=== PATIENT | female | born 1990 | race Caucasian/White ===

== ENCOUNTER 2016-09-14 14:58 | Emergency (ER) | payer SELFPAY ==
[~2016-09-14] VITALS: Ht 180.3 cm; Wt 149.7 kg
[~2016-09-14 14:58] MED LIST: FAMO-63 PO; FLUT9.9S NS; PHEN-318 PO; PRED20TA PO; PRED50TA PO; PROAIR RESPICL90 MCG IH; SULF1TAB24 PO
[2016-09-14 15:53] VITALS: BP 160/79
[2016-09-14 15:58] LABS: NEG OBC UR NEG; POS OBC UR POS
[2016-09-14 16:00] LABS: BILIRUBIN,URINE NEGATIVE (NEG); GLUCOSE,URINE NEGATIVE (NEG); NITRITE,URINE NEGATIVE (NEG); PH,URINE 5.5; PROTEIN,URINE NEGATIVE (NEG-TRACE); UROBILINOGEN,URINE 0.2 mg/dL (0.2 mg/dL)
[2016-09-14 16:09] LABS: BACTERIA,URINE MANY /HPF (0-FEW); RBC,URINE 0 /HPF (0-2); SQUAMOUS EPITHELIAL CELL,UR MANY /LPF
[2016-09-14] MEDS ORDERED: LEVO500T38 PO (16:23)
--- NOTE | 2016-09-14 16:23 | PHYS DOC ---
Past Medical History Past Medical History: GERD, GI Bleed, High Cholesterol, Hypertension, Other Additional Past Medical Histor: insulin resistance Past Surgical History: Cholecystectomy Alcohol Use: Occasionally Drug Use: None Adult General Chief Complaint Chief Complaint: BACK PAIN - NO INJURY [facility] HPI Patient is a 26 year old female presents emergency department stating that she has been having urinary frequency with right flank pain and discomfort for the last 3-4 days.. Patient also states that she had a yeast infection approximately a week ago in which she had used [id number] medications. She denies any vaginal discharge. She denies any fever, chills. She does state she's had some nausea although she has a history of ulcers. Patient denies any abdominal pain or discomfort. Denies any recent use of antibiotics. Review of Systems Review of Systems Constitutional: Denies fever or chills [] Eyes: Denies change in visual acuity, redness, or eye pain [] HENT: Denies nasal congestion or sore throat [] Respiratory: Denies cough or shortness of breath [] Cardiovascular: No additional information not addressed in HPI [] GI: Denies abdominal pain, vomiting, bloody stools or diarrhea. C/o nausea : dysuria denies hematuria [] Musculoskeletal: Denies back pain or joint pain [] Integument: Denies rash or skin lesions [] Neurologic: Denies headache, focal weakness or sensory changes [] Allergies Allergies Allergies Coded Allergies Type Severity Reaction Last Updated Verified lisinopril Allergy Intermediate Itching 04/19/16 No Physical Exam Physical Exam Constitutional: Well developed, well nourished, no acute distress, non-toxic appearance. [] HENT: Normocephalic, atraumatic, bilateral external ears normal, oropharynx moist, no oral exudates, nose normal. Maxillary sinus tenderness noted bilaterally Eyes: PERRLA, EOMI, conjunctiva normal, no discharge. [] Neck: Normal range of motion, no tenderness, supple, no stridor. [] Cardiovascular:Heart rate regular rhythm, no murmur [] Lungs & Thorax: Bilateral breath sounds clear to auscultation [] Abdomen: Bowel sounds hypoactive, soft, no tenderness, no masses, no pulsatile masses. [] Skin: Warm, dry, no erythema, no rash. [] Back: No tenderness, right CVA tenderness. [] Extremities: No tenderness, no cyanosis, no clubbing, ROM intact, no edema. [] Neurologic: Alert and oriented X 3, normal motor function, normal sensory function, no focal deficits noted. [] Psychologic: Affect normal, judgement normal, mood normal. [] Current Patient Data Vital Signs Vital Signs Date Time Temp Pulse Resp B/P Pulse Ox O2 Delivery O2 Flow Rate FiO2 09/14/16 15:53 98.4 96 18 160/79 100 Room Air 98.4 Lab Values Laboratory Tests Test 09/14/16 15:48 Urine Collection Type Unknown Urine Color Yellow Urine Clarity Clear Urine pH 5.5 Urine Specific Micro <=1.005 Urine Protein Negativemg/dL (NEG-TRACE) Urine Glucose (UA) Negativemg/dL (NEG) Urine Ketones (Stick) Negativemg/dL (NEG) Urine Blood Negative (NEG) Urine Nitrite Negative (NEG) Urine Bilirubin Negative (NEG) Urine Urobilinogen Dipstick 0.2mg/dL (0.2 mg/dL) Urine Leukocyte Esterase Small (NEG) Urine RBC 0/HPF (0-2) Urine WBC 1-4/HPF (0-4) Urine Squamous Epithelial Cells Many/LPF Urine Bacteria Many/HPF (0-FEW) Urine Mucus Mod/LPF Urine Test Negative (NEG) EKG EKG [] Radiology/Procedures Radiology/Procedures [] Course & Med Decision Making Course & Med Decision Making Pertinent Labs and Imaging studies reviewed. (See chart for details) Patients urine was positive for leuk with contamination noted. Patient continues to deny vaginal discharge. She does c/o gum discomfort with bleeding when brushing her teeth. Patient will be discharged home in stable conditions. Recommended avoiding cranberry juice cocktail, carbonated beverages, citrus fruits and alcohol as these are considered irritants to the bladder. Patient was provided with discharge instructions, treatment regimen and followup recommendations. Signs and symptoms to return to the emergency department has been provided. Patient will be discharged home in stable condition. [] Dragon Disclaimer Dragon Disclaimer This electronic medical record was generated, in whole or in part, using a voice recognition dictation system. Departure Departure Impression: Primary Impression: UTI (urinary tract infection) Disposition: 01 HOME, SELF-CARE Condition: STABLE Referrals: NO PCP (PCP) Patient Instructions: Urinary Tract Infection, [id number] Additional Instructions: Activity as tolerated Medication as prescribed Drink plenty of fluids Drink plenty of water and cranberry juice Avoid cranberry juice cocktail, carbonated beverages, caffeine and alcohol as these are considered irritants to the bladder Followup with your primary care provider in 7-10 days Return to emergency department as needed for signs and symptoms that become worse. Scripts Levofloxacin (Levaquin)500 Mg Tablet1 Tab PO DAILY #10 TAB Prov:AXEL CASON NP 09/14/16 AXEL CASON NP Sep 14, 2016 16:23
== END 2016-09-14 17:00 | disposition home or self-care (01) ==
LOC: ER 14:58
DX: N39.0 Urinary tract infection, site not specified (principal); I10 Essential (primary) hypertension; E78.00 Pure hypercholesterolemia, unspecified; E88.81 Metabolic syndrome and other insulin resistance; K21.9 Gastro-esophageal reflux disease without esophagitis; Z88.8 Allergy status to other drugs, medicaments and biological substances
CPT/HCPCS: 81001; 81025; 87086; 99284

== ENCOUNTER 2016-10-24 06:03 | Emergency (ER) | payer OTHER ==
[~2016-10-24] VITALS: Ht 172.7 cm; Wt 149.7 kg
[~2016-10-24 06:03] MED LIST changes: +LEVO500T38 PO
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
[2016-10-24] MEDS ORDERED: ACETAMINOPHEN 500 MG TABLET PO ONE (06:45)
[2016-10-24 06:46] VITALS: BP 144/82
[2016-10-24] MEDS ORDERED: DIPHTH,PERTUSS(ACELL),TET TOX 0.5 ML DISP.SYRIN. VAX IM ONE (07:15)
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
[2016-10-24] MEDS ORDERED: HYDR-971 PO (07:59)
== END 2016-10-24 08:08 | disposition home or self-care (01) ==
LOC: EEVIPCON 06:03 → ER 06:03
DX: R51 Headache (principal); M25.561 Pain in right knee; M25.531 Pain in right wrist; M79.632 Pain in left forearm; M54.2 Cervicalgia; E78.00 Pure hypercholesterolemia, unspecified; I10 Essential (primary) hypertension; K21.9 Gastro-esophageal reflux disease without esophagitis; Z90.49 Acquired absence of other specified parts of digestive tract; Z88.8 Allergy status to other drugs, medicaments and biological substances; Y04.0XXA Assault by unarmed brawl or fight, initial encounter; Y93.89 Activity, other specified; Y99.8 Other external cause status; Y92.89 Other specified places as the place of occurrence of the external cause
CPT/HCPCS: 70450; 70486; 72125; 73090; 73110; 73564; 81025; 90471; 90715; 99284-25

== ENCOUNTER 2016-11-07 13:52 | Emergency (ER) | payer OTHER ==
[~2016-11-07] VITALS: Ht 180.3 cm; Wt 145.1 kg
[~2016-11-07 13:52] MED LIST changes: +HYDR-971 PO
[2016-11-07 14:20] VITALS: BP 139/92
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
== END 2016-11-07 15:16 | disposition home or self-care (01) ==
LOC: ER 13:55
DX: S93.401A Sprain of unspecified ligament of right ankle, initial encounter (principal); M72.2 Plantar fascial fibromatosis; I10 Essential (primary) hypertension; K21.9 Gastro-esophageal reflux disease without esophagitis; E78.00 Pure hypercholesterolemia, unspecified; F12.10 Cannabis abuse, uncomplicated; Z79.4 Long term (current) use of insulin; Y08.89XA Assault by other specified means, initial encounter; Y93.89 Activity, other specified; Y99.8 Other external cause status; Y92.89 Other specified places as the place of occurrence of the external cause
CPT/HCPCS: 29515; 73610; 99284-25

== ENCOUNTER 2017-02-11 21:59 | Emergency (ER) | payer OTHER ==
[~2017-02-11] VITALS: Ht 180.3 cm; Wt 140.6 kg
[~2017-02-11 21:59] MED LIST changes: -LEVO500T38 PO; +LEVO500T59 PO
[2017-02-11 22:30] VITALS: BP 153/85
[2017-02-11] MEDS ORDERED: IBUPROFEN 600 MG TABLET. PO ONE (23:30)
[2017-02-11] MEDS ORDERED: HYDROcodone/APAP 5/325MG 1 TAB TABLET PO ONE (23:30)
[2017-02-11] MEDS ORDERED: CYCLOBENZAPRINE 10 MG TABLET. PO ONE (23:30)
[2017-02-11] MEDS ORDERED: CYCL5TAB PO (23:37)
[2017-02-11] MEDS ORDERED: HYDR-971 PO (23:37)
--- NOTE | 2017-02-11 23:38 | PHYS DOC ---
Past Medical History Past Medical History: GERD, GI Bleed, High Cholesterol, Hypertension, Other Additional Past Medical Histor: insulin resistance Past Surgical History: Cholecystectomy Alcohol Use: Occasionally Drug Use: Marijuana Adult General Chief Complaint Chief Complaint: LOWER BACK PAIN OR INJURY HPI HPI Patient is a 26 year old female who presents with back pain. The patient states 2 days ago she bent over to pick something up, felt a shooting pain in her back and has had severe muscle spasm and pain across her lower back since that time. Denies any trauma or fall. Worse with movement. Denies fevers or chills, abdominal pain, dysuria or hematuria, bowel or bladder incontinence or retention, saddle anesthesia, lower extremity numbness or weakness. Reports previous back injury several years ago. No back surgeries. Review of Systems Review of Systems Constitutional: Denies fever or chills HENT: Denies nasal congestion or sore throat Respiratory: Denies cough or shortness of breath Cardiovascular: Denies chest pain GI: Denies abdominal pain, nausea, vomiting : Denies dysuria or hematuria Musculoskeletal: Reports back pain, denies joint pain Integument: Denies rash or skin lesions Neurologic: Denies headache, focal weakness or sensory changes Current Medications Current Medications Current Medications Medications (Trade) Dose Ordered Sig/Tiffanie Start Time Stop Time Status Last Admin Dose Admin Acetaminophen/ Hydrocodone Bitart (Lortab 5/325) 2 tab 1X ONCE 02/11/17 23:30 02/11/17 23:31 DC 02/11/17 23:39 2 TAB Cyclobenzaprine HCl (Flexeril) 10 mg 1X ONCE 02/11/17 23:30 02/11/17 23:31 DC 02/11/17 23:39 10 MG Ibuprofen (Motrin) 600 mg 1X ONCE 02/11/17 23:30 02/11/17 23:31 DC 02/11/17 23:39 600 MG Allergies Allergies Allergies Coded Allergies Type Severity Reaction Last Updated Verified lisinopril Allergy Intermediate Itching 04/19/16 No Physical Exam Physical Exam Constitutional: Obese, tearful, non-toxic appearance. HENT: Normocephalic, atraumatic, bilateral external ears normal, oropharynx moist, nose normal. Eyes: \conjunctiva normal, no discharge. Neck: supple, no stridor. Cardiovascular: RRR, no murmurs, no edema. Lungs & Thorax: LCTAB, no wheezing, no respiratory distress. Abdomen: soft, nontender, nondistended. Skin: Warm, dry, no erythema, no rash. Back: No spinal tenderness or step-offs, generalized tenderness over lumbar paraspinous muscles, no CVA tenderness. Extremities: No tenderness, no edema. Neurologic: Alert and oriented X 3, symmetric strength and sensation to lower extremities no focal deficits noted. Psychologic: Tearful Current Patient Data Vital Signs Vital Signs Date Time Temp Pulse Resp B/P (MAP) Pulse Ox O2 Delivery O2 Flow Rate FiO2 02/11/17 23:39 99 Room Air 02/11/17 22:30 98.1 76 20 98.1 EKG EKG [] Radiology/Procedures Radiology/Procedures [] Course & Med Decision Making Course & Med Decision Making Pertinent Labs and Imaging studies reviewed. (See chart for details) The patient presents with back pain. Discussed imaging with x-ray, likely low yield with mechanism of injury. She preferred not to undergo imaging at this time. She had a ride home. Gave ibuprofen, [place], Flexeril. Recommend supportive care with rest but not complete bed rest, stretching as tolerated, ice or heat, ibuprofen 600 mg every 8 hours, gave prescriptions for [place] and Flexeril. No drinking alcohol or driving while taking these medications. Provided work no. Follow-up with primary care physician if not improving in one to 2 weeks. May require MRI at that time. Return to the emergency department for symptoms of cauda equina syndrome or otherwise worsening condition. Discharged home in stable condition. [] Dragon Disclaimer Dragon Disclaimer This electronic medical record was generated, in whole or in part, using a voice recognition dictation system. Departure Departure Impression: Primary Impression: Lower back pain Disposition: 01 HOME, SELF-CARE Condition: STABLE Referrals: NO PCP (PCP) MARLEE TRUJILLO MD Patient Instructions: Back Pain, Adult, [id number] Additional Instructions: You were seen in the emergency department today for back pain. This is likely muscle strain. Please rest, apply ice/heat, take ibuprofen 600 mg (3 tablets) every 8 hours, use Flexeril as needed for muscle spasm and [place] for severe pain. No drinking alcohol or driving while taking these medications. Try not to just rest on the bed. Follow up with primary care physician if not improving in one to 2 weeks. Return to the emergency department for loss of control of bowels or bladder, numbness or weakness in legs, severe abdominal pain, any otherwise worsening condition. Scripts Hydrocodone/Apap 5-325 (NORCO 5-325 TABLET) 1 Each Tablet 1 TAB PO PRN Q6HRS Y for PAIN, #10 TAB 0 Refills Prov: TIFF RUGGIERO MD 02/11/17 Cyclobenzaprine Hcl (CYCLOBENZAPRINE HCL) 5 Mg Tablet 1 TAB PO TID Y for MUSCLE SPASMS, #10 TAB Prov: TIFF RUGGIERO MD 02/11/17 TIFF RUGGIERO MD Feb 11, 2017 23:38
== END 2017-02-11 23:51 | disposition home or self-care (01) ==
LOC: ER 21:59
DX: M54.5 Low back pain (principal); E78.00 Pure hypercholesterolemia, unspecified; K21.9 Gastro-esophageal reflux disease without esophagitis; I10 Essential (primary) hypertension; E66.9 Obesity, unspecified; F12.10 Cannabis abuse, uncomplicated; E88.81 Metabolic syndrome and other insulin resistance; Z90.49 Acquired absence of other specified parts of digestive tract; Z68.41 Body mass index [BMI] 40.0-44.9, adult; Z88.8 Allergy status to other drugs, medicaments and biological substances
CPT/HCPCS: 99284

== ENCOUNTER 2017-04-02 18:44 | Emergency (ER) | payer OTHER ==
[~2017-04-02] VITALS: Ht 180.3 cm; Wt 149.7 kg
[~2017-04-02 18:44] MED LIST changes: +CYCL5TAB PO
[2017-04-02 19:20] VITALS: BP 147/96
[2017-04-02] MEDS ORDERED: FLUC150T PO (19:30)
[2017-04-02] MEDS ORDERED: AMOX1TAB61 PO (19:30)
--- NOTE | 2017-04-02 19:31 | PHYS DOC ---
Past Medical History Past Medical History: GERD, GI Bleed, High Cholesterol, Hypertension, Other Additional Past Medical Histor: insulin resistance Past Surgical History: Cholecystectomy Alcohol Use: Occasionally Drug Use: Marijuana Adult General Chief Complaint Chief Complaint: EARACHE/EAR PAIN [facility] HPI Patient is a 26 year old female presents emergency department stating that she' s had 2-3 day history of sinus pressure with bilateral ear itching and sharp pain in the right ear. She also states that she's been having the throat that feels very itchy. Patient denies any fever, chills or any nausea vomiting. Patient states that she's taken Tylenol and ibuprofen over the counter with minimal relief. She states that she's been taking Benadryl to also help with seasonal allergies. Review of Systems Review of Systems Constitutional: Denies fever or chills [] Eyes: Denies change in visual acuity, redness, or eye pain [] HENT: Denies nasal congestion or sore throat. Complaint of bilateral itching of the ears as well as throat. Complaint of frontal and maxillary sinus pressure Respiratory: Denies cough or shortness of breath [] Cardiovascular: No additional information not addressed in HPI [] GI: Denies abdominal pain, nausea, vomiting, bloody stools or diarrhea [] : Denies dysuria or hematuria [] Musculoskeletal: Denies back pain or joint pain [] Integument: Denies rash or skin lesions [] Neurologic: Denies headache, focal weakness or sensory changes [] Endocrine: Denies polyuria or polydipsia [] Allergies Allergies Allergies Coded Allergies Type Severity Reaction Last Updated Verified lisinopril Allergy Intermediate Itching 04/19/16 No Physical Exam Physical Exam Constitutional: Well developed, well nourished, no acute distress, non-toxic appearance. [] HENT: Normocephalic, atraumatic, bilateral external ears normal, oropharynx moist, no oral exudates, nose normal. Left tympanic membrane appears to be normal right tympanic membrane appears to be cloudy. No drainage or discharge noted from the area. Throat appears to have postnasal drip. No redness no exudate noted. Patient was noted to have frontal and maxillary sinus tenderness bilaterally. Eyes: PERRLA, EOMI, conjunctiva normal, no discharge. [] Neck: Normal range of motion, no tenderness, supple, no stridor. [] Cardiovascular:Heart rate regular rhythm, no murmur [] Lungs & Thorax: Bilateral breath sounds clear to auscultation [] Skin: Warm, dry, no erythema, no rash. [] Back: No tenderness Extremities: No tenderness, no cyanosis, no clubbing, ROM intact, no edema. [] Neurologic: Alert and oriented X 3, normal motor function, normal sensory function, no focal deficits noted. [] Psychologic: Affect normal, judgement normal, mood normal. [] EKG EKG [] Radiology/Procedures Radiology/Procedures [] Course & Med Decision Making Course & Med Decision Making Pertinent Labs and Imaging studies reviewed. (See chart for details) Patient was recommended Sudafed [id number] as well as Mucinex DM as prescribed by senior accountant analyst. Patient was encouraged drink plenty of fluids. She' ll be provided with a prescription for Augmentin. Also recommended Diflucan due to her history of having yeast infections with medications. Patient will be discharged home in stable condition signs and symptoms to return back to emergency department as been provided. [] Dragon Disclaimer Dragon Disclaimer This electronic medical record was generated, in whole or in part, using a voice recognition dictation system. Departure Departure Impression: Primary Impression: Sinusitis Disposition: HOME, SELF-CARE Condition: STABLE Referrals: NO PCP (PCP) Patient Instructions: Sinusitis, [id number] Additional Instructions: Activity as tolerated. Mucinex DM and Sudafed instructed by senior accountant analyst. Tylenol or ibuprofen for fever chills or generalized body aches and discomfort. Antibiotics as prescribed. Make sure you complete the full regimen even if he should start feeling better. Drink plenty of fluids. Follow-up with a primary care physician in the next week. Return back to emergency department sign symptoms of become worse. Scripts Fluconazole (DIFLUCAN) 150 Mg Tablet 1 TAB PO ONCE, #1 TAB 1 Refill Take one dose with and symptoms appear. He may repeat the dosage when she antibiotics have been completed. Prov: AXEL CASON APRN 04/02/17 Amoxicillin/Potassium Clav (AUGMENTIN 875-125 TABLET) 1 Each Tablet 1 TAB PO BID, #20 TAB Prov: AXEL CASON APRN 04/02/17 AXEL CASON APRN Apr 02, 2017 19:31
== END 2017-04-02 19:35 | disposition home or self-care (01) ==
LOC: ER 18:44
DX: J32.9 Chronic sinusitis, unspecified (principal); I10 Essential (primary) hypertension; E78.00 Pure hypercholesterolemia, unspecified; K21.9 Gastro-esophageal reflux disease without esophagitis; F12.10 Cannabis abuse, uncomplicated; Z90.49 Acquired absence of other specified parts of digestive tract; Z88.8 Allergy status to other drugs, medicaments and biological substances
CPT/HCPCS: 99283

== ENCOUNTER 2017-05-09 18:24 | Emergency (ER) | payer SELFPAY ==
[~2017-05-09] VITALS: Ht 180.3 cm; Wt 149.7 kg
[~2017-05-09 18:24] MED LIST changes: +AMOX1TAB61 PO; +FLUC150T PO
[2017-05-09 18:34] VITALS: BP 166/79
--- NOTE | 2017-05-09 19:29 | PHYS DOC ---
Past Medical History Past Medical History: GERD, GI Bleed, High Cholesterol, Hypertension, Other Additional Past Medical Histor: insulin resistance Past Surgical History: Cholecystectomy Alcohol Use: Occasionally Drug Use: Marijuana Adult General Chief Complaint Chief Complaint: LOWER EXT PAIN [facility] HPI Patient is a 27 year old female with history of hypertension, high cholesterol , GI bleed, who presents today with swollen area on the right thigh. Patient has history of varicose veins. She feels one of them is swollen and tender since yesterday. Patient is concerned she could have a DVT. Denies any chest pain or shortness of breath. Denies any risk factors for DVTs including previous history of a DVT, use of hormones, recent hospitalization, recent long flights or car rides, shortness of breath. Review of Systems Review of Systems Constitutional: Denies fever or chills [] Eyes: Denies change in visual acuity, redness, or eye pain [] HENT: Denies nasal congestion or sore throat [] Respiratory: Denies cough or shortness of breath [] Cardiovascular: No additional information not addressed in HPI [] GI: Denies abdominal pain, nausea, vomiting, bloody stools or diarrhea [] : Denies dysuria or hematuria [] Musculoskeletal: Denies back pain or joint pain [] Integument: Swollen area on the right thigh Neurologic: Denies headache, focal weakness or sensory changes [] Allergies Allergies Allergies Coded Allergies Type Severity Reaction Last Updated Verified lisinopril Allergy Intermediate Itching 04/19/16 No Physical Exam Physical Exam Constitutional: Well developed, well nourished, no acute distress, non-toxic appearance. [] HENT: Normocephalic, atraumatic, bilateral external ears normal, oropharynx moist, no oral exudates, nose normal. [] Eyes: PERRLA, EOMI, conjunctiva normal, no discharge. [] Neck: Normal range of motion, no tenderness, supple, no stridor. [] Cardiovascular:Heart rate regular rhythm, no murmur [] Lungs & Thorax: Bilateral breath sounds clear to auscultation [] Abdomen: Bowel sounds normal, soft, no tenderness, no masses, no pulsatile masses. [] Skin: Moderate vericose veins noted on bilateral lower extremities. Area of concern is right medial thigh with a varicose vein with palpable mass approx approx. 4 cm long. No erythema, no warmth, slight tenderness on physical exam. Negative right lower extremity Homans sign. +2 Right pedal pulse Back: No tenderness, no CVA tenderness. [] Extremities: No tenderness, no cyanosis, no clubbing, ROM intact, no edema. [] Neurologic: Alert and oriented X 3, normal motor function, normal sensory function, no focal deficits noted. [] Psychologic: Affect normal, judgement normal, mood normal. [] Current Patient Data Vital Signs Vital Signs Date Time Temp Pulse Resp B/P (MAP) Pulse Ox O2 Delivery O2 Flow Rate FiO2 05/09/17 18:34 98.2 103 20 100 Room Air 98.2 EKG EKG [] Radiology/Procedures Radiology/Procedures [] Course & Med Decision Making Course & Med Decision Making Pertinent Labs and Imaging studies reviewed. (See chart for details) Patient is in the ED to be evaluated for right lower extremity specifically the right posterior thigh swollen area around her varicose vein. She has history of varicose veins. She is worried about a DVT. Venous Doppler of the right lower extremity shows no evidence of DVT. There is a short segment superficial venous thrombosis of the medial mid thigh. Consulted with Dr. Vazquez, he requested patient to be discharged on NSAIDS and be requested to return to follow-up with the primary care doctor in 7 days for another ultrasound to make sure this superficial venous thrombosis does not grow bigger or return to the Ed for the ultrasound. Patient states she does not have a PCP. She was instructed to return to the ED in 7 days and have another ultrasound. Dragon Disclaimer Dragon Disclaimer This electronic medical record was generated, in whole or in part, using a voice recognition dictation system. Departure Departure Impression: Primary Impression: Acute superficial venous thrombosis of right lower extremity Additional Impression: Varicose veins of both lower extremities Disposition: HOME, SELF-CARE Condition: STABLE Referrals: NO PCP (PCP) see discharge note for follow up information Patient Instructions: Varicose Veins, Venous Thromboembolism Additional Instructions: You had an ultrasound performed today which shows you have a short segment superficial venous thrombosis of the medial mid thigh We recommend you take NSAIDs for the next 7 days and we also recommend you follow-up with your doctor in 7 days and have a repeat ultrasound to make sure this superficial thrombus does not grow bigger. If you do not have a primary care doctor, you can return to the emergency room in 7 days for the ultrasound. Ensure you the person at the front of the Ed who checks people in know you are here to be seen for a repeat ultrasound to make sure your venous thrombosis does not grow bigger. Problem Qualifiers BREANNA CROFT APRN May 09, 2017 19:29
--- NOTE | 2017-05-09 20:18 | RAD ---
Right lower extremity venous Doppler dated 05/09/2017. No comparison available. Clinical indication: Mid thigh swelling. FINDINGS: Grayscale, color-flow and spectral waveform analysis performed to include the deep venous system of right lower extremity. Normal compressibility, phasicity and augmentation of flow throughout. No filling defects are seen. There are prominent superficial venous varicosities of the mid thigh region medially that are partially thrombosed,, measuring about 5 to 6 cm in length. IMPRESSION: 1. No evidence of right lower extremity deep vein thrombosis. 2. Short segment superficial venous thrombosis at the medial mid thigh. Electronically signed by: Guillermo Luu MD (05/09/2017 8:15 PM) [facility]
== END 2017-05-09 21:14 | disposition home or self-care (01) ==
LOC: ER 18:24
DX: I82.4Z1 Acute embolism and thrombosis of unspecified deep veins of right distal lower extremity (principal); I83.93 Asymptomatic varicose veins of bilateral lower extremities; K21.9 Gastro-esophageal reflux disease without esophagitis; E78.00 Pure hypercholesterolemia, unspecified; I10 Essential (primary) hypertension; Z88.8 Allergy status to other drugs, medicaments and biological substances
CPT/HCPCS: 93971; 99284-25

== ENCOUNTER 2017-05-17 18:41 | Emergency (ER) | payer SELFPAY ==
[2017-05-17 19:30] VITALS: BP 142/86
--- NOTE | 2017-05-17 19:57 | PHYS DOC ---
Past Medical History Past Medical History: GERD, GI Bleed, High Cholesterol, Hypertension, Other Additional Past Medical Histor: insulin resistance Past Surgical History: Cholecystectomy Alcohol Use: Occasionally Drug Use: Marijuana Adult General Chief Complaint Chief Complaint: LOWER EXT PAIN HPI HPI Patient is a 27 year old female presents to the emergency department with quest for follow-up ultrasound to the right lower extremity. Patient was evaluated one week ago in the emergency department and diagnosed with superficial thrombophlebitis. She was advised to return to the emergency department in one week for reevaluation. She is discharged home on Naprosyn that time purchased no complaints upon arrival. She has no chest pain, no abdominal pain, shortness of breath. Review of Systems Review of Systems Constitutional: Denies fever or chills [] Eyes: Denies change in visual acuity, redness, or eye pain [] HENT: Denies nasal congestion or sore throat [] Respiratory: Denies cough or shortness of breath [] Cardiovascular: No additional information not addressed in HPI [] GI: Denies abdominal pain, nausea, vomiting, bloody stools or diarrhea [] : Denies dysuria or hematuria [] Musculoskeletal: Right medial thigh discomfort Integument: Denies rash or skin lesions [] Neurologic: Denies headache, focal weakness or sensory changes [] Endocrine: Denies polyuria or polydipsia [] Allergies Allergies Allergies Coded Allergies Type Severity Reaction Last Updated Verified lisinopril Allergy Intermediate Itching 04/19/16 No Physical Exam Physical Exam Constitutional: Well developed, well nourished, no acute distress, non-toxic appearance. [] HENT: Normocephalic, atraumatic, bilateral external ears normal, oropharynx moist, no oral exudates, nose normal. [] Eyes: PERRLA, EOMI, conjunctiva normal, no discharge. [] Neck: Normal range of motion, no tenderness, supple, no stridor. [] Cardiovascular:Heart rate regular rhythm, no murmur [] Lungs & Thorax: Bilateral breath sounds clear to auscultation [] Abdomen: Bowel sounds normal, soft, no tenderness, no masses, no pulsatile masses. [] Skin: Warm, dry, medial thigh with a 2 cm area of erythema with underlying varicosities. Back: No tenderness, no CVA tenderness. [] Extremities: No tenderness, no cyanosis, no clubbing, ROM intact, no edema. Norvasc intact distally. [] Neurologic: Alert and oriented X 3, normal motor function, normal sensory function, no focal deficits noted. [] Psychologic: Affect normal, judgement normal, mood normal. [] Current Patient Data Vital Signs Vital Signs Date Time Temp Pulse Resp B/P (MAP) Pulse Ox O2 Delivery O2 Flow Rate FiO2 05/17/17 19:30 98.1 92 18 98 Room Air 98.1 EKG EKG [] Radiology/Procedures Radiology/Procedures [][facility] [address] [place] [address] IMAGING REPORT Signed PATIENT: SANDOR HO ACCOUNT: [id number] : 1990 LOCATION: ER AGE: 27 SEX: F EXAM STATUS: REG ER ORD. PHYSICIAN: VIDYA GRAYSON APRN REASON: follow up US 7 days PROCEDURE: VENOUS LOWER EXTREMITY RIGHT Right lower extremity venous duplex Doppler ultrasound TECHNIQUE: Grayscale and duplex Doppler sonography were utilized. HISTORY: Thrombosed superficial varicose vein right leg, right leg pain increasing COMPARISON: Right lower extremity venous Doppler ultrasound May 09, 2017 FINDINGS: No evidence of deep venous thrombosis by grayscale imaging with compressibility, patent color Doppler blood flow and augmentation of blood flow the right common femoral vein, profunda femoral vein, located superficial femoral vein and popliteal vein. Patent color Doppler blood flow with augmentation of flow without thrombosis of the posterior tibial veins and peroneal veins in the calf. At the mid to distal thigh again demonstrated is a tubular thrombosed superficial varicose vein similar to the prior study. There is patent blood flow within the greater saphenous vein within the proximal thigh without thrombosis. IMPRESSION: Negative right leg for deep venous thrombosis. Thrombosed superficial venous varicosity of the mid to distal right thigh is again demonstrated. Electronically signed by: Mehreen Garrison MD (05/17/2017 8:36 PM) [facility] DICTATED and SIGNED BY: MEHREEN GARRISON MD DATE: 05/17/172033 CC: NO PCP; VIDYA GRAYSON APRN ~ Course & Med Decision Making Course & Med Decision Making Pertinent Labs and Imaging studies reviewed. (See chart for details) [] Dragon Disclaimer Dragon Disclaimer This electronic medical record was generated, in whole or in part, using a voice recognition dictation system. Departure Departure Impression: Primary Impression: Acute superficial venous thrombosis of right lower extremity Disposition: HOME, SELF-CARE Condition: STABLE Referrals: NO PCP (PCP) Patient Instructions: Varicose Veins Additional Instructions: Follow-up with the pain clinic of your choice. Warm moist heat to affected area. Continue ibuprofen when necessary for pain. VIDYA GRAYSON ENDODONTIC ASSISTANT May 17, 2017 19:57
--- NOTE | 2017-05-17 20:40 | RAD ---
Right lower extremity venous duplex Doppler ultrasound TECHNIQUE: Grayscale and duplex Doppler sonography were utilized. HISTORY: Thrombosed superficial varicose vein right leg, right leg pain increasing COMPARISON: Right lower extremity venous Doppler ultrasound May 09, 2017 FINDINGS: No evidence of deep venous thrombosis by grayscale imaging with compressibility, patent color Doppler blood flow and augmentation of blood flow the right common femoral vein, profunda femoral vein, located superficial femoral vein and popliteal vein. Patent color Doppler blood flow with augmentation of flow without thrombosis of the posterior tibial veins and peroneal veins in the calf. At the mid to distal thigh again demonstrated is a tubular thrombosed superficial varicose vein similar to the prior study. There is patent blood flow within the greater saphenous vein within the proximal thigh without thrombosis. IMPRESSION: Negative right leg for deep venous thrombosis. Thrombosed superficial venous varicosity of the mid to distal right thigh is again demonstrated. Electronically signed by: Baljinder Garrison MD (05/17/2017 8:36 PM) [facility]
== END 2017-05-17 20:50 | disposition home or self-care (01) ==
LOC: ER 18:41
DX: I82.811 Embolism and thrombosis of superficial veins of right lower extremity (principal); K21.9 Gastro-esophageal reflux disease without esophagitis; E78.00 Pure hypercholesterolemia, unspecified; I10 Essential (primary) hypertension; F12.10 Cannabis abuse, uncomplicated; Z88.8 Allergy status to other drugs, medicaments and biological substances
CPT/HCPCS: 93971; 99284-25

== ENCOUNTER 2017-06-08 10:03 | Emergency (ER) | payer SELFPAY ==
[~2017-06-08] VITALS: Ht 180.3 cm; Wt 149.7 kg
[2017-06-08 10:32] VITALS: BP 180/105
[2017-06-08] MEDS ORDERED: methylPREDNISolone SOD SUCC PF 125 MG/2 ML VIAL. IM ONE (11:15)
[2017-06-08] MEDS ORDERED: ORPHENADRINE CITRATE 60 MG/2 ML VIAL. IM ONE (11:15)
[2017-06-08] MEDS ORDERED: KETOROLAC 60 MG/2 ML INJ. IM ONE (11:15)
--- NOTE | 2017-06-08 11:15 | PHYS DOC ---
Past Medical History Past Medical History: GERD, GI Bleed, High Cholesterol, Hypertension, Other Additional Past Medical Histor: insulin resistance, chronic pain Past Surgical History: Cholecystectomy Alcohol Use: Occasionally Drug Use: Marijuana Adult General Chief Complaint Chief Complaint: LOWER BACK PAIN OR INJURY [facility] HPI Patient is a 27 year old female presents to the emergency department with a history of right lower back pain with radiation of pain to the right upper thigh. Patient states the pain is so bad that she is unable to walk. She denies injury or trauma to the back. Patient states she has taken baclofen and meloxicam. She states she took a friends baclofen. She states these medication have not helped with her pain at all. She denies incont of urine or bowel. Review of Systems Review of Systems Constitutional: Denies fever or chills [] Eyes: Denies change in visual acuity, redness, or eye pain [] HENT: Denies nasal congestion or sore throat [] Respiratory: Denies cough or shortness of breath [] Cardiovascular: No additional information not addressed in HPI [] GI: Denies abdominal pain, nausea, vomiting, bloody stools or diarrhea [] : Denies dysuria or hematuria [] Musculoskeletal: C/o right lower back pain and discomfort, denies joint pain Integument: Denies rash or skin lesions [] Neurologic: Denies headache, focal weakness or sensory changes [] Endocrine: Denies polyuria or polydipsia [] Current Medications Current Medications Current Medications Medications (Trade) Dose Ordered Sig/Tiffanie Start Time Stop Time Status Last Admin Dose Admin Ketorolac Tromethamine (Toradol Im) 60 mg 1X ONCE 06/08/17 11:15 06/08/17 11:16 DC 06/08/17 11:29 60 MG Methylprednisolone Sodium Succinate (SOLU-Medrol 125MG VIAL) 125 mg 1X ONCE 06/08/17 11:15 06/08/17 11:16 DC 06/08/17 11:28 125 MG Orphenadrine Citrate (Norflex) 60 mg 1X ONCE 06/08/17 11:15 06/08/17 11:16 DC 06/08/17 11:29 60 MG Allergies Allergies Allergies Coded Allergies Type Severity Reaction Last Updated Verified lisinopril Allergy Intermediate Itching 04/19/16 No Physical Exam Physical Exam Constitutional: Well developed, well nourished, no acute distress, non-toxic appearance. [] HENT: Normocephalic, atraumatic, bilateral external ears normal, oropharynx moist, no oral exudates, nose normal. [] Eyes: PERRLA, EOMI, conjunctiva normal, no discharge. [] Neck: Normal range of motion, no tenderness, supple, no stridor. [] Cardiovascular:Heart rate regular rhythm, no murmur [] Lungs & Thorax: Bilateral breath sounds clear to auscultation [] Skin: Warm, dry, no erythema, no rash. [] Back: Right lower back tenderness, Patient was noted to have increase discomfort with straight leg raises, She had increase pain with internal rotation of the right leg. Extremities: No tenderness, no cyanosis, no clubbing, ROM intact, no edema. [] Neurologic: Alert and oriented X 3, normal motor function, normal sensory function, no focal deficits noted. [] Psychologic: Affect normal, judgement normal, mood normal. [] Current Patient Data Vital Signs Vital Signs Date Time Temp Pulse Resp B/P (MAP) Pulse Ox O2 Delivery O2 Flow Rate FiO2 06/08/17 10:32 98.0 99 22 98 Room Air 98.0 EKG EKG [] Radiology/Procedures Radiology/Procedures [] Course & Med Decision Making Course & Med Decision Making Pertinent Labs and Imaging studies reviewed. (See chart for details) Patient was provided with Solu-Medrol, Toradol, and Norflex approximately 30 minutes ago. Patient states she has had no relief of pain and continues to have discomfort. Patient is lying on her side and begins to start crying once the provider walked into the room. Patient continues to state that she is taken meloxicam at home as well as baclofen whose medication as a friend's. Patient states these medications have not helped with the pain and discomfort. Explained to patient that we will be sending her home with steroids she can continue with the meloxicam and we'll send prescription for Flexeril as well. Recommended ice packs on 20 minutes off 20 minutes several times a day. Provided patient with proper body positioning when lying down in which patient continued to interrupt provider during discharge instructions stating that she has tried everything and the pain is not any better and feels that she needs to have further pain medications. Patient was instructed that she would need to follow-up with her primary care physician in the next 7-10 days for reevaluation with her primary care for potential MRI if the pain continues. Patient will be discharged home in stable condition signs and symptoms to return back to emergency department been provided. All questions and concerns been answered at patient's bedside. [] Dragon Disclaimer Dragon Disclaimer This electronic medical record was generated, in whole or in part, using a voice recognition dictation system. Departure Departure Impression: Primary Impression: Back pain with sciatica Disposition: HOME, SELF-CARE Condition: STABLE Referrals: NO PCP (PCP) Patient Instructions: Sciatica with [facility], Sciatica, [id number] Additional Instructions: Activity as tolerated. Medications as prescribed. Flexeril will cause drowsiness do not take if you need to be alert and oriented. Do not take the baclofen with the Flexeril. It is not advisable to take other people prescriptive medication for yourself. Ice packs on 20 minutes off 20 minutes several times a day. Whenever you are resting and lying on your side it is advisable to have a pillow between your needs help with proper body mechanics. When you're able to lie on your back it is advisable that you use a pillow underneath her knees to help promote the lower back to relax and not have as much pressure placed on the back area. Follow-up with your primary care physician in 7-10 days. You've been provided with a doctor's list. Return to the emergency department for signs and symptoms of become worse. Scripts Prednisone (PREDNISONE) 20 Mg Tablet 40 MG PO DAILY for 7 Days, #14 TAB Prov: AXEL CASON APRN 06/08/17 Cyclobenzaprine Hcl (CYCLOBENZAPRINE HCL) 10 Mg Tablet 1 TAB PO TID Y for MUSCLE SPASMS, #30 TAB Prov: AXEL CASON APRN 06/08/17 AXEL CASON APRN Jun 08, 2017 11:15
[2017-06-08] MEDS ORDERED: CYCL10TA2 PO (12:09)
[2017-06-08] MEDS ORDERED: PRED20TA PO (12:09)
== END 2017-06-08 12:20 | disposition home or self-care (01) ==
LOC: ER 10:03
DX: M54.41 Lumbago with sciatica, right side (principal); K21.9 Gastro-esophageal reflux disease without esophagitis; E78.00 Pure hypercholesterolemia, unspecified; I10 Essential (primary) hypertension; G89.29 Other chronic pain; Z88.8 Allergy status to other drugs, medicaments and biological substances
CPT/HCPCS: 96372; 99284; J1885; J2360; J2930

== ENCOUNTER 2017-08-02 17:40 | Emergency (ER) | payer SELFPAY ==
[~2017-08-02 17:40] MED LIST changes: +CYCL10TA2 PO
[2017-08-02] MEDS ORDERED: IV NORMAL SALINE 1000ML BAG 1,000 ML IV ONE (18:15)
[2017-08-02] MEDS ORDERED: MORPHINE SULFATE 10 MG/ML VIAL. IV ONE (18:15)
[2017-08-02] MEDS ORDERED: KETOROLAC 30 MG/ML INJ. IV ONE (18:15)
[2017-08-02] MEDS ORDERED: ONDANSETRON PF 4 MG/2 ML VIAL. IV ONE (18:15)
[2017-08-02 18:16] LABS: BILIRUBIN,URINE NEGATIVE (NEG); GLUCOSE,URINE NEGATIVE (NEG); NITRITE,URINE NEGATIVE (NEG); PROTEIN,URINE NEGATIVE (NEG-TRACE); UROBILINOGEN,URINE 0.2 mg/dL (0.2 mg/dL)
[2017-08-02 18:19] LABS: BASO # 0.1 x10^3/uL (0.0-0.2); BASO % 1 % (0-3); EOS % 3 % (0-3); HEMATOCRIT 42.5 % (36.0-47.0); HEMOGLOBIN 14.2 g/dL (12.0-15.5); LYMPH # 4.3 x10^3/uL (1.0-4.8); LYMPH % 37 % (24-48); MEAN CORPUSCULAR HEMOGLOBIN 29 pg (25-35); MEAN CORPUSCULAR HGB CONC 33 g/dL (31-37); MEAN CORPUSCULAR VOLUME 86 fL (79-100); MONO % 6 % (0-9); NEUT % 53 % (31-73); PLATELET COUNT 285 x10^3/uL (140-400); RED BLOOD COUNT 4.96 x10^6/uL (3.50-5.40); RED CELL DISTRIBUTION WIDTH 12.8 % (11.5-14.5); WHITE BLOOD COUNT 11.6 x10^3/uL (4.0-11.0)
[2017-08-02 18:20] LABS: BACTERIA,URINE FEW /HPF (0-FEW); RBC,URINE OCC /HPF (0-2); SQUAMOUS EPITHELIAL CELL,UR MOD /LPF; WBC,URINE OCC /HPF (0-4)
[2017-08-02 18:28] LABS: CREATININE 0.7 mg/dL (0.6-1.0); GFR 98.9; POTASSIUM 3.7 mmol/L (3.5-5.1)
[2017-08-02 18:33] LABS: ALBUMIN 3.6 g/dL (3.4-5.0); ALBUMIN/GLOBULIN RATIO 0.8 (1.0-1.7); MAGNESIUM 1.9 mg/dL (1.8-2.4); TOTAL BILIRUBIN 0.5 mg/dL (0.2-1.0)
[2017-08-02] MEDS ORDERED: ONDA4TAB10 PO (19:36)
[2017-08-02] MEDS ORDERED: AZIT250T PO (19:36)
--- NOTE | 2017-08-02 19:36 | PHYS DOC ---
Past Medical History Past Medical History: GERD, GI Bleed, High Cholesterol, Hypertension, Other Additional Past Medical Histor: insulin resistance, chronic pain Past Surgical History: Cholecystectomy Alcohol Use: Occasionally Drug Use: Marijuana Adult General Chief Complaint Chief Complaint: HEADACHE HPI HPI Patient is a 27 year old female presenting to the emergency department for evaluation of a headache that has been going on for approximately 2 days. Some worse this morning when she woke up and that it has progressed throughout the day. Pain is mostly in the neck and shoulders and she says she has tension headaches but nothing could make it better including ibuprofen and hydrocodone. Patient has had some nausea with 2 episodes of nonbloody nonbilious emesis. She has some facial pain as well with some sinus congestion and thinks that she may have an early sinusitis as this has been going on for approximately 5 days. She denies any fevers chills neck stiffness or photophobia. She is in no obvious distress with normal vital signs. Review of Systems Review of Systems Constitutional: Denies fever or chills [] Eyes: Denies change in visual acuity, redness, or eye pain [] HENT: + nasal congestion. No sore throat [] Respiratory: Denies cough or shortness of breath [] Cardiovascular: No additional information not addressed in HPI [] GI: Denies abdominal pain, + nausea, vomiting. No bloody stools or diarrhea [] Neurologic: + headache. No focal weakness or sensory changes [] Current Medications Current Medications Current Medications Medications (Trade) Dose Ordered Sig/Tiffanie Start Time Stop Time Status Last Admin Dose Admin Ketorolac Tromethamine (Toradol) 30 mg 1X ONCE 08/02/17 18:15 08/02/17 18:16 DC 08/02/17 18:17 30 MG Morphine Sulfate 5 mg 1X ONCE 08/02/17 18:15 08/02/17 18:16 DC 08/02/17 18:22 5 MG Ondansetron HCl (Zofran) 8 mg 1X ONCE 08/02/17 18:15 08/02/17 18:16 DC 08/02/17 18:15 8 MG Sodium Chloride 1,000 ml @ 1,000 mls/hr 1X ONCE 08/02/17 18:15 08/02/17 19:14 DC 08/02/17 18:15 1,000 MLS/HR Allergies Allergies Allergies Coded Allergies Type Severity Reaction Last Updated Verified lisinopril Allergy Intermediate Itching 04/19/16 No Physical Exam Physical Exam Constitutional: Well developed, well nourished, no acute distress, non-toxic appearance. [] HENT: Normocephalic, atraumatic, mild maxillary sinus tenderness to palpation bilaterally bilateral external ears normal, oropharynx moist, no oral exudates, nose normal. [] Eyes: PERRLA, EOMI, conjunctiva normal, no discharge. No photophobia Neck: Normal range of motion, no tenderness, supple, no stridor. No stiffness or meningismus on exam Cardiovascular:Heart rate regular rhythm, no murmur [] Lungs & Thorax: Bilateral breath sounds clear to auscultation [] Abdomen: Bowel sounds normal, soft, no tenderness, no masses, no pulsatile masses. [] Skin: Warm, dry, no erythema, no rash. [] Neurologic: Alert and oriented X 3, normal motor function, normal sensory function, no focal deficits noted. [] Current Patient Data Vital Signs Vital Signs Date Time Temp Pulse Resp B/P (MAP) Pulse Ox O2 Delivery O2 Flow Rate FiO2 08/02/17 17:51 98.2 91 16 149/92 (111) 97 Room Air 98.2 Lab Values Laboratory Tests Test 08/02/17 17:55 08/02/17 17:56 08/02/17 18:06 Urine Collection Type Unknown Urine Color Yellow Urine Clarity Clear Urine pH 7.0 Urine Specific [place] 1.025 Urine Protein Negative mg/dL (NEG-TRACE) Urine Glucose (UA) Negative mg/dL (NEG) Urine Ketones (Stick) Negative mg/dL (NEG) Urine Blood Negative (NEG) Urine Nitrite Negative (NEG) Urine Bilirubin Negative (NEG) Urine Urobilinogen Dipstick 0.2 mg/dL (0.2 mg/dL) Urine Leukocyte Esterase Negative (NEG) Urine RBC Occ /HPF (0-2) Urine WBC Occ /HPF (0-4) Urine Squamous Epithelial Cells Mod /LPF Urine Bacteria Few /HPF (0-FEW) Urine Mucus Marked /LPF POC Urine HCG, Qualitative Hcg negative (Negative) White Blood Count 11.6 x10^3/uL (4.0-11.0) H Red Blood Count 4.96 x10^6/uL (3.50-5.40) Hemoglobin 14.2 g/dL (12.0-15.5) Hematocrit 42.5 % (36.0-47.0) Mean Corpuscular Volume 86 fL (79-100) Mean Corpuscular Hemoglobin 29 pg (25-35) Mean Corpuscular Hemoglobin Concent 33 g/dL (31-37) Red Cell Distribution Width 12.8 % (11.5-14.5) Platelet Count 285 x10^3/uL (140-400) Neutrophils (%) (Auto) 53 % (31-73) Lymphocytes (%) (Auto) 37 % (24-48) Monocytes (%) (Auto) 6 % (0-9) Eosinophils (%) (Auto) 3 % (0-3) Basophils (%) (Auto) 1 % (0-3) Neutrophils # (Auto) 6.2 x10^3uL (1.8-7.7) Lymphocytes # (Auto) 4.3 x10^3/uL (1.0-4.8) Monocytes # (Auto) 0.7 x10^3/uL (0.0-1.1) Eosinophils # (Auto) 0.3 x10^3/uL (0.0-0.7) Basophils # (Auto) 0.1 x10^3/uL (0.0-0.2) Sodium Level 139 mmol/L (136-145) Potassium Level 3.7 mmol/L (3.5-5.1) Chloride Level 103 mmol/L (98-107) Carbon Dioxide Level 26 mmol/L (21-32) Anion Gap 10 (6-14) Blood Urea Nitrogen 10 mg/dL (7-20) Creatinine 0.7 mg/dL (0.6-1.0) Estimated GFR (Cockcroft-Gault) 98.9 BUN/Creatinine Ratio 14 (6-20) Glucose Level 89 mg/dL (70-99) Calcium Level 9.0 mg/dL (8.5-10.1) Magnesium Level 1.9 mg/dL (1.8-2.4) Total Bilirubin 0.5 mg/dL (0.2-1.0) Aspartate Amino Transferase (AST) 33 U/L (15-37) Alanine Aminotransferase (ALT) 51 U/L (14-59) Alkaline Phosphatase 99 U/L (46-116) Total Protein 8.0 g/dL (6.4-8.2) Albumin 3.6 g/dL (3.4-5.0) Albumin/Globulin Ratio 0.8 (1.0-1.7) L Laboratory Tests 08/02/17 18:06 Laboratory Tests 08/02/17 18:06 EKG EKG [] Radiology/Procedures Radiology/Procedures [] Course & Med Decision Making Course & Med Decision Making This sounds more like a tension type headache with possibly an early sinusitis. I have no concern for subarachnoid hemorrhage meningitis cerebral venous thrombosis or other acute headache pathology at this time. She says that her pain is gone and now she can tolerate fluids with no difficulty and would like to go home. I recommended continuing ibuprofen and hydrocodone plenty of fluids and I will prescribe Zithromax and recommend [id number] Nasonex. Patient aware and agreeable with plan for discharge and verbalized understanding of the need for short-term follow-up and strict ED return precautions discussed including worsening pain fevers vomiting or other general concerns. Dragon Disclaimer Dragon Disclaimer This electronic medical record was generated, in whole or in part, using a voice recognition dictation system. Departure Departure Impression: Primary Impression: Headache Additional Impression: Sinusitis Disposition: HOME, SELF-CARE Condition: STABLE Referrals: NO PCP (PCP) Patient Instructions: General Headache Without Cause Additional Instructions: USE OTC NASONEX FOR CONGESTION Scripts Ondansetron (ZOFRAN ODT) 4 Mg Tab.rapdis 4 MG PO BID Y for NAUSEA/VOMITING, #10 TAB Prov: OWEN CAMPBELL DO 08/02/17 Azithromycin (ZITHROMAX) 250 Mg Tablet 1 PKG PO UD, #6 TAB Prov: OWEN CAMPBELL DO 08/02/17 Problem Qualifiers Primary Impression: Headache Headache type: unspecified Headache chronicity pattern: acute headache Intractability: not intractable Qualified Codes: R51 - Headache OWEN CAMPBELL DO Aug 02, 2017 19:36
[2017-08-02 19:44] VITALS: BP 140/80
== END 2017-08-02 19:46 | disposition home or self-care (01) ==
LOC: ER 17:40
DX: J32.9 Chronic sinusitis, unspecified (principal); R51 Headache; R11.2 Nausea with vomiting, unspecified; E78.00 Pure hypercholesterolemia, unspecified; I10 Essential (primary) hypertension; G89.29 Other chronic pain; K21.9 Gastro-esophageal reflux disease without esophagitis; F17.210 Nicotine dependence, cigarettes, uncomplicated; Z88.8 Allergy status to other drugs, medicaments and biological substances
CPT/HCPCS: 36415; 80053; 81001; 81025; 83735; 85025; 96361; 96374; 96375; 99284; J1885; J2270; J2405; J7030

== ENCOUNTER 2017-09-10 13:11 | Emergency (ER) | payer SELFPAY ==
[2017-09-10] MEDS: IPRATRPIUM/ALBUTEROL 0.5/2.5MG 3 ML NEBU. NEB (13:39)
[2017-09-10] MEDS: predniSONE 10 MG TABLET PO (13:57)
== END 2017-09-10 14:16 | disposition home or self-care (01) ==
LOC: ER 13:11
DX: J40 Bronchitis, not specified as acute or chronic (principal); J45.901 Unspecified asthma with (acute) exacerbation; K21.9 Gastro-esophageal reflux disease without esophagitis; E78.00 Pure hypercholesterolemia, unspecified; I10 Essential (primary) hypertension; G89.29 Other chronic pain; F12.10 Cannabis abuse, uncomplicated; E88.81 Metabolic syndrome and other insulin resistance; Z90.49 Acquired absence of other specified parts of digestive tract; Z79.899 Other long term (current) drug therapy; Z88.8 Allergy status to other drugs, medicaments and biological substances
CPT/HCPCS: 94640; 99283-25; J7512; J7620

== ENCOUNTER 2017-10-22 12:36 | Emergency (ER) | payer SELFPAY | END 2017-10-22 13:50 | disposition home or self-care (01) | LOC: ER 12:36 | DX: M72.2 Plantar fascial fibromatosis (principal); E78.00 Pure hypercholesterolemia, unspecified; I10 Essential (primary) hypertension; G89.29 Other chronic pain; K21.9 Gastro-esophageal reflux disease without esophagitis; Z88.6 Allergy status to analgesic agent | CPT/HCPCS: 73630; 99284 ==

== ENCOUNTER 2018-01-23 01:56 | Emergency (ER) | payer SELFPAY ==
[2018-01-23 02:32] LABS: URINE HCG POC HCG NEGATIVE (Negative)
[2018-01-23 03:12] LABS: BILIRUBIN,URINE NEGATIVE (NEG); CLARITY,URINE CLEAR; COLOR,URINE YELLOW; GLUCOSE,URINE NEGATIVE (NEG); NITRITE,URINE NEGATIVE (NEG); PH,URINE 5.5; PROTEIN,URINE 30 mg/dL (NEG-TRACE); UROBILINOGEN,URINE 0.2 mg/dL (0.2 mg/dL)
[2018-01-23] MEDS: HYDROcodone/APAP 5/325MG 1 TAB TABLET PO (03:19)
[2018-01-23 03:56] LABS: BACTERIA,URINE FEW /HPF (0-FEW); RBC,URINE 0 /HPF (0-2)
[2018-01-23 03:57] LABS: SQUAMOUS EPITHELIAL CELL,UR MOD /LPF
== END 2018-01-23 04:50 | disposition home or self-care (01) ==
LOC: ER 01:56
DX: R51 Headache (principal); R11.0 Nausea; R30.0 Dysuria; E78.00 Pure hypercholesterolemia, unspecified; K21.9 Gastro-esophageal reflux disease without esophagitis; I10 Essential (primary) hypertension; Z90.49 Acquired absence of other specified parts of digestive tract; Z88.8 Allergy status to other drugs, medicaments and biological substances; Y08.89XA Assault by other specified means, initial encounter; Y93.89 Activity, other specified; Y92.89 Other specified places as the place of occurrence of the external cause; Y99.8 Other external cause status
CPT/HCPCS: 70450; 70486; 81001; 81025; 99285-25

== ENCOUNTER 2018-06-22 22:12 | Emergency (ER) | payer SELFPAY ==
[~2018-06-22] VITALS: Ht 180.3 cm; Wt 147.4 kg
[~2018-06-22 22:12] MED LIST changes: +AZIT250T PO; +NAPR-514 PO; +ONDA4TAB10 PO; +PROAIR HFA8.5 GM INH
[2018-06-22 22:53] LABS: BASO # 0.2 x10^3/uL (0.0-0.2); BASO % 1 % (0-3); EOS # 0.4 x10^3/uL (0.0-0.7); EOS % 3 % (0-3); HEMATOCRIT 35.7 % (36.0-47.0); HEMOGLOBIN 12.8 g/dL (12.0-15.5); LYMPH # 4.9 x10^3/uL (1.0-4.8); LYMPH % 36 % (24-48); MEAN CORPUSCULAR HEMOGLOBIN 30 pg (25-35); MEAN CORPUSCULAR HGB CONC 36 g/dL (31-37); MEAN CORPUSCULAR VOLUME 82 fL (79-100); MONO # 0.7 x10^3/uL (0.0-1.1); MONO % 5 % (0-9); NEUT # 7.5 x10^3uL (1.8-7.7); NEUT % 55 % (31-73); PLATELET COUNT 306 x10^3/uL (140-400); RED BLOOD COUNT 4.34 x10^6/uL (3.50-5.40); RED CELL DISTRIBUTION WIDTH 13.4 % (11.5-14.5); WHITE BLOOD COUNT 13.6 x10^3/uL (4.0-11.0)
--- NOTE | 2018-06-22 22:55 | PHYS DOC ---
Past Medical History Past Medical History: GERD, GI Bleed, High Cholesterol, Hypertension, Other Additional Past Medical Histor: insulin resistance, chronic pain, PLANTAR FASCIITIS Past Surgical History: Cholecystectomy Alcohol Use: Occasionally Drug Use: None Adult General Chief Complaint Chief Complaint: CHEST PAIN HPI HPI Patient is a 28 year old [f__sex] who presents with [] Review of Systems Review of Systems Constitutional: Denies fever or chills [] Eyes: Denies change in visual acuity, redness, or eye pain [] HENT: Denies nasal congestion or sore throat [] Respiratory: Denies cough or shortness of breath [] Cardiovascular: No additional information not addressed in HPI [] GI: Denies abdominal pain, nausea, vomiting, bloody stools or diarrhea [] : Denies dysuria or hematuria [] Musculoskeletal: Denies back pain or joint pain [] Integument: Denies rash or skin lesions [] Neurologic: Denies headache, focal weakness or sensory changes [] Endocrine: Denies polyuria or polydipsia [] All other systems were reviewed and found to be within normal limits, except as documented in this note. Current Medications Current Medications Current Medications Medications (Trade) Dose Ordered Sig/Tiffanie Start Time Stop Time Status Last Admin Dose Admin Info (CONTRAST GIVEN -- Rx MONITORING) 1 each PRN DAILY PRN 06/23/18 01:00 06/25/18 00:59 Iohexol (Omnipaque 300 Mg/ml) 100 ml 1X ONCE 06/23/18 01:15 06/23/18 01:16 DC Allergies Allergies Allergies Coded Allergies Type Severity Reaction Last Updated Verified lisinopril Allergy Intermediate Itching 04/19/16 No Physical Exam Physical Exam Constitutional: Well developed, well nourished, no acute distress, non-toxic appearance. [] HENT: Normocephalic, atraumatic, bilateral external ears normal, oropharynx moist, no oral exudates, nose normal. [] Eyes: PERRLA, EOMI, conjunctiva normal, no discharge. [] Neck: Normal range of motion, no tenderness, supple, no stridor. [] Cardiovascular:Heart rate regular rhythm, no murmur [] Lungs & Thorax: Bilateral breath sounds clear to auscultation [] Abdomen: Bowel sounds normal, soft, no tenderness, no masses, no pulsatile masses. [] Skin: Warm, dry, no erythema, no rash. [] Back: No tenderness, no CVA tenderness. [] Extremities: No tenderness, no cyanosis, no clubbing, ROM intact, no edema. [] Neurologic: Alert and oriented X 3, normal motor function, normal sensory function, no focal deficits noted. [] Psychologic: Affect normal, judgement normal, mood normal. [] Current Patient Data Vital Signs Vital Signs Date Time Temp Pulse Resp B/P (MAP) Pulse Ox O2 Delivery O2 Flow Rate FiO2 06/23/18 01:15 92 15 133/71 (91) 98 Room Air 06/22/18 22:32 98.0 98.0 Lab Values Laboratory Tests Test 06/22/18 22:43 06/23/18 01:25 White Blood Count 13.6 x10^3/uL (4.0-11.0) H Red Blood Count 4.34 x10^6/uL (3.50-5.40) Hemoglobin 12.8 g/dL (12.0-15.5) Hematocrit 35.7 % (36.0-47.0) L Mean Corpuscular Volume 82 fL (79-100) Mean Corpuscular Hemoglobin 30 pg (25-35) Mean Corpuscular Hemoglobin Concent 36 g/dL (31-37) Red Cell Distribution Width 13.4 % (11.5-14.5) Platelet Count 306 x10^3/uL (140-400) Neutrophils (%) (Auto) 55 % (31-73) Lymphocytes (%) (Auto) 36 % (24-48) Monocytes (%) (Auto) 5 % (0-9) Eosinophils (%) (Auto) 3 % (0-3) Basophils (%) (Auto) 1 % (0-3) Neutrophils # (Auto) 7.5 x10^3uL (1.8-7.7) Lymphocytes # (Auto) 4.9 x10^3/uL (1.0-4.8) H Monocytes # (Auto) 0.7 x10^3/uL (0.0-1.1) Eosinophils # (Auto) 0.4 x10^3/uL (0.0-0.7) Basophils # (Auto) 0.2 x10^3/uL (0.0-0.2) D-Dimer (Carine) 0.86 ug/mlFEU (0.00-0.50) H Urine Collection Type Unknown Urine Color Yellow Urine Clarity Clear Urine pH 5.5 Urine Specific [place] >=1.030 Urine Protein Negative mg/dL (NEG-TRACE) Urine Glucose (UA) Negative mg/dL (NEG) Urine Ketones (Stick) Negative mg/dL (NEG) Urine Blood Negative (NEG) Urine Nitrite Negative (NEG) Urine Bilirubin Negative (NEG) Urine Urobilinogen Dipstick 0.2 mg/dL (0.2 mg/dL) Urine Leukocyte Esterase Negative (NEG) Urine RBC 1-2 /HPF (0-2) Urine WBC 1-4 /HPF (0-4) Urine Squamous Epithelial Cells Few /LPF Urine Bacteria Moderate /HPF (0-FEW) Urine Mucus Mod /LPF Urine Test Negative (NEG) Sodium Level 140 mmol/L (136-145) Potassium Level 3.4 mmol/L (3.5-5.1) L Chloride Level 105 mmol/L (98-107) Carbon Dioxide Level 25 mmol/L (21-32) Anion Gap 10 (6-14) Blood Urea Nitrogen 10 mg/dL (7-20) Creatinine 0.7 mg/dL (0.6-1.0) Estimated GFR (Cockcroft-Gault) 98.3 BUN/Creatinine Ratio 14 (6-20) Glucose Level 131 mg/dL (70-99) H Calcium Level 8.4 mg/dL (8.5-10.1) L Magnesium Level 2.0 mg/dL (1.8-2.4) Total Bilirubin 0.3 mg/dL (0.2-1.0) Aspartate Amino Transferase (AST) 39 U/L (15-37) H Alanine Aminotransferase (ALT) 54 U/L (14-59) Alkaline Phosphatase 88 U/L (46-116) Creatine Kinase 261 U/L (26-192) H Creatine Kinase MB (Mass) 1.7 ng/mL (0.0-3.6) Creatine Kinase MB Relative Index 0.7 % (0-4) Troponin I Quantitative < 0.017 ng/mL (0.000-0.055) < 0.017 ng/mL (0.000-0.055) Total Protein 7.4 g/dL (6.4-8.2) Albumin 3.3 g/dL (3.4-5.0) L Albumin/Globulin Ratio 0.8 (1.0-1.7) L Lipase 162 U/L (73-393) Laboratory Tests 06/22/18 22:43 Laboratory Tests 06/22/18 22:43 EKG EKG @2221 Sinus tachycardia at 107bpm NO ST elevation, nonspecific t wave inversion I and avL Radiology/Procedures Radiology/Procedures PROCEDURE: CT ANGIOGRAPHY CHEST CTA Chest with contrast: Clinical History: chest pain; elevated d-dimer; Omni 300, 100ml(per Dr. Rangel)-anyone over 300lbs. Shortness of breath. Axial helical images of the chest were obtained after the administration of 100 cc of IV Omni 300 and timed appropriately for a pulmonary arterial study. Conventional axial reconstruction was performed in addition to coronal, sagittal and bilateral oblique MIP (maximum intensity projection). This study was ordered to detect possible pulmonary embolism. There are no filling defects to suggest pulmonary embolism. The lungs and pleural margins are clear. There is no mediastinal or hilar lymphadenopathy. The thoracic aorta appears normal. Impression: 1. No evidence of pulmonary embolism. 2. No significant findings. PQRS Compliance Statement: One or more of the following individualized dose reduction techniques were utilized for this examination: 1. Automated exposure control 2. Adjustment of the mA and/or kV according to patient size 3. Use of iterative reconstruction technique Electronically signed by: Salty Liao III, MD (06/23/2018 12:50 AM) [facility] [place] Course & Med Decision Making Course & Med Decision Making Pertinent Labs and Imaging studies reviewed. (See chart for details) [] Dragon Disclaimer Dragon Disclaimer This electronic medical record was generated, in whole or in part, using a voice recognition dictation system. Departure Departure Impression: Primary Impression: Atypical chest pain Additional Impression: Anxiety Disposition: 01 HOME, SELF-CARE Condition: IMPROVED Referrals: NO PCP (PCP) MARINA MONTGOMERY MD Patient Instructions: Anxiety and Panic Attacks, [id number], Chest Pain ( Nonspecific), [id number] Problem Qualifiers ZEESHAN BANEGAS DO Jun 22, 2018 22:55
[2018-06-22 22:56] LABS: BILIRUBIN,URINE NEGATIVE (NEG); CLARITY,URINE CLEAR; COLOR,URINE YELLOW; NITRITE,URINE NEGATIVE (NEG); PH,URINE 5.5; PROTEIN,URINE NEGATIVE (NEG-TRACE); UROBILINOGEN,URINE 0.2 mg/dL (0.2 mg/dL)
[2018-06-22 23:10] LABS: BACTERIA,URINE MODERATE /HPF (0-FEW); SQUAMOUS EPITHELIAL CELL,UR FEW /LPF
[2018-06-22 23:17] LABS: CALCIUM 8.4 mg/dL (8.5-10.1); CREATININE 0.7 mg/dL (0.6-1.0); GFR 98.3; POTASSIUM 3.4 mmol/L (3.5-5.1)
[2018-06-22 23:27] LABS: ALBUMIN 3.3 g/dL (3.4-5.0); ALBUMIN/GLOBULIN RATIO 0.8 (1.0-1.7); TOTAL BILIRUBIN 0.3 mg/dL (0.2-1.0); TOTAL PROTEIN 7.4 g/dL (6.4-8.2)
[2018-06-23 00:52] LABS: U PREG PATIENT NEGATIVE (NEG)
--- NOTE | 2018-06-23 00:53 | RAD ---
CTA Chest with contrast: Clinical History: chest pain; elevated d-dimer; Omni 300, 100ml(per Dr. Rangel)-anyone over 300lbs. Shortness of breath. Axial helical images of the chest were obtained after the administration of 100 cc of IV Omni 300 and timed appropriately for a pulmonary arterial study. Conventional axial reconstruction was performed in addition to coronal, sagittal and bilateral oblique MIP (maximum intensity projection). This study was ordered to detect possible pulmonary embolism. There are no filling defects to suggest pulmonary embolism. The lungs and pleural margins are clear. There is no mediastinal or hilar lymphadenopathy. The thoracic aorta appears normal. Impression: 1. No evidence of pulmonary embolism. 2. No significant findings. PQRS Compliance Statement: One or more of the following individualized dose reduction techniques were utilized for this examination: 1. Automated exposure control 2. Adjustment of the mA and/or kV according to patient size 3. Use of iterative reconstruction technique Electronically signed by: Salty Liao III, MD (06/23/2018 12:50 AM) [facility]
[2018-06-23] MEDS ORDERED: CONTRAST GIVEN. MC PRN (01:00)
[2018-06-23] MEDS ORDERED: IOHEXOL 300 MG/ML 100ML VIAL. IV ONE (01:15)
--- NOTE | 2018-06-23 01:57 | EKG ---
[facility] [address] [place] [address] Test Date: 2018-06-22 Test Time: 22:21:19 Pat Name: SANDOR HO Department: Room: Gender: F Boarder Machine: : [id number] Requested By: ZEESHAN BANEGAS Order Number: [id number] Reading MD: Measurements Intervals [place] Rate: 107 P: -180 FL: 152 QRS: 124 QRSD: 94 T: 129 QT: 338 QTc: 456 Interpretive Statements SINUS TACHYCARDIA * POSSIBLE REVERSAL OF THE ARM LEADS ABNORMAL RIGHT AXIS DEVIATION CONSIDER RIGHT VENTRICULAR HYPERTROPHY QRS(T) CONTOUR ABNORMALITY CONSISTENT WITH HIGH LATERAL INFARCT AGE UNDETERMINED ABNORMAL ECG No previous ECG available for comparison
[2018-06-23 02:08] VITALS: BP 126/66
[2018-06-23] MEDS ORDERED: IOHEXOL 300 MG/ML 100ML VIAL. ONE (06:32)
== END 2018-06-23 02:16 | disposition home or self-care (01) ==
LOC: ER 22:12
DX: F41.9 Anxiety disorder, unspecified (principal); R07.89 Other chest pain; K21.9 Gastro-esophageal reflux disease without esophagitis; E78.00 Pure hypercholesterolemia, unspecified; I10 Essential (primary) hypertension; G89.29 Other chronic pain; Z90.49 Acquired absence of other specified parts of digestive tract; Z88.8 Allergy status to other drugs, medicaments and biological substances
CPT/HCPCS: 36415; 71275; 80053; 81001; 81025; 82553; 83690; 83735; 84484; 85025; 85379; 87086; 93005; 99285-25

== ENCOUNTER 2018-07-24 12:56 | Emergency (ER) | payer SELFPAY ==
[~2018-07-24] VITALS: Ht 180.3 cm; Wt 136.1 kg
[~2018-07-24 12:56] MED LIST changes: +HYDR-3164 PO; -HYDR-971 PO
[2018-07-24 13:29] VITALS: BP 163/99
--- NOTE | 2018-07-24 14:30 | PHYS DOC ---
Past Medical History Past Medical History: No Pertinent History, Hypertension Additional Past Medical Histor: insulin resistance, chronic pain, PLANTAR FASCIITIS, PCOS Past Surgical History: Cholecystectomy Alcohol Use: None Drug Use: None Adult General Chief Complaint Chief Complaint: HEADACHE HPI HPI Patient is a 28 year old female who presents to the ER with complaints of nasal congestion, post nasal drainage, scratchy throat, sinus pressure, headache , and dry cough for the last 2-3 days. She denies any wheezing, shortness of breath, nausea, vomiting, diarrhea, or fever. Pt states she took an OTC cold medication yesterday and that helped to relieve her symptoms slightly. Review of Systems Review of Systems Constitutional: Denies fever or chills [] Eyes: Denies change in visual acuity, redness, or eye pain [] HENT: See HPI Respiratory: Denies wheezing or shortness of breath, reports dry cough GI: Denies abdominal pain, nausea, vomiting, or diarrhea [] Musculoskeletal: Denies back pain or joint pain [] Integument: Denies rash or skin lesions [] Neurologic: Denies headache, focal weakness or sensory changes [] All other systems were reviewed and found to be within normal limits, except as documented in this note. Allergies Allergies Allergies Coded Allergies Type Severity Reaction Last Updated Verified lisinopril Allergy Intermediate Itching 04/19/16 No Physical Exam Physical Exam Constitutional: Well developed, well nourished, no acute distress, non-toxic appearance, obses. [] HENT: Normocephalic, atraumatic, bilateral external ears normal, bilateral TMs normal, clear post-nasal drainage, oropharynx moist, no oral exudates, nose normal, frontal and maxillary sinus tenderness to palpation[] Eyes: PERRLA, conjunctiva normal, no discharge. [] Neck: Normal range of motion, no tenderness, supple, no stridor. [] Cardiovascular:Heart rate regular rhythm, no murmur [] Lungs & Thorax: Bilateral breath sounds clear to auscultation in all laughlin [] Skin: Warm, dry, no erythema, no rash. [] Neurologic: Alert and oriented X 3, normal motor function, normal sensory function, no focal deficits noted. [] Psychologic: Affect normal, judgement normal, mood normal. [] Current Patient Data Vital Signs Vital Signs Date Time Temp Pulse Resp B/P (MAP) Pulse Ox O2 Delivery O2 Flow Rate FiO2 11/28/18 13:29 97.8 97 18 163/99 (120) 97 Room Air 97.8 EKG EKG [] Radiology/Procedures Radiology/Procedures [] Course & Med Decision Making Course & Med Decision Making Pertinent Labs and Imaging studies reviewed. (See chart for details) Dx: URI Recommend OTC Flonase 2 sprays each nare daily. Cool mist humidifier in room at bedtime. Tylenol or ibuprofen prn pain/fever. Increase clear fluids. Avoid triggers such as smoke, fragrance, dust, and pollen. May take OTC cough suppressants as needed. Follow-up with your primary care doctor if symptoms persist, and about your elevated blood pressure return to ER if symptoms worsen. Patient verbalized an understanding of home care, medications, follow-up , and return to ED instructions and was in agreement with the plan of care. [] Dragon Disclaimer Dragon Disclaimer This electronic medical record was generated, in whole or in part, using a voice recognition dictation system. Departure Departure Impression: Primary Impression: Acute upper respiratory infection Disposition: HOME, SELF-CARE Condition: STABLE Referrals: NO PCP (PCP) Patient Instructions: Upper Respiratory Infection, Adult, [id number] Additional Instructions: Recommend OTC Flonase 2 sprays each nare daily. Cool mist humidifier in room at bedtime. Tylenol or ibuprofen prn pain/fever. Increase clear fluids. Avoid triggers such as smoke, fragrance, dust, and pollen. May take OTC cough suppressants as needed. Follow-up with your primary care doctor if symptoms persist, and about your elevated blood pressure return to ER if symptoms worsen. [] BETZY CASAS MINISTER HELPER Jul 24, 2018 14:30
== END 2018-07-24 14:36 | disposition home or self-care (01) ==
LOC: ER 12:56
DX: J06.9 Acute upper respiratory infection, unspecified (principal); R51 Headache; I10 Essential (primary) hypertension; G89.29 Other chronic pain; Z90.49 Acquired absence of other specified parts of digestive tract; Z88.8 Allergy status to other drugs, medicaments and biological substances
CPT/HCPCS: 99281

== ENCOUNTER 2018-09-20 22:26 | Emergency (ER) | payer SELFPAY ==
[~2018-09-20] VITALS: Ht 180.3 cm; Wt 149.7 kg
[~2018-09-20 22:26] MED LIST changes: +ALBU2.5V8 INH; -PROAIR HFA8.5 GM INH
[2018-09-20 22:34] VITALS: BP 167/97
[2018-09-20] MEDS ORDERED: DEXAMETHASONE SOD PHOS 20 MG/5 ML VIAL. PO ONE (23:00)
[2018-09-20] MEDS ORDERED: AMOX1TAB61 PO (23:02)
--- NOTE | 2018-09-20 23:03 | PHYS DOC ---
Past Medical History Past Medical History: No Pertinent History, Hypertension Additional Past Medical Histor: insulin resistance, chronic pain, PLANTAR FASCIITIS, PCOS (BETZY CASAS APRN) Past Surgical History: Cholecystectomy, Other Additional Past Surgical Histo: BOTTOM WISDOM TEETH REMOVED (BETZY CASAS APRN) Alcohol Use: None Drug Use: None (BETZY CASAS APRN) Adult General Chief Complaint Chief Complaint: DENTAL PROBLEM HPI HPI Patient is a 28 year old female who presents to the ER with complaints of R lower dental pain after having her wisdom teeth extracted 2 weeks ago. She also complains of bilateral ear fullness, sinus pressure, nasal congestion, post nasal drainage. Pt states she has been taking oxycodone prescribed by the dentist as needed for pain. She denies any fever, nausea, vomiting, wheezing or shortness of breath. (BETZY CASAS APRN) Review of Systems Review of Systems Constitutional: Denies fever or chills [] Eyes: Denies redness, or eye pain [] HENT: See HPI Respiratory: Denies wheezing or shortness of breath, lung sounds clear in all laughlin [] Cardiovascular: No additional information not addressed in HPI [] GI: Denies abdominal pain, nausea, vomiting, or diarrhea [] Integument: Denies rash or skin lesions [] Neurologic: Denies focal weakness or sensory changes [] (BETZY CASAS APRN) Current Medications Current Medications Current Medications Medications (Trade) Dose Ordered Sig/Tiffanie Start Time Stop Time Status Last Admin Dose Admin Dexamethasone Sodium Phosphate (Decadron) 10 mg 1X ONCE 09/20/18 23:00 09/20/18 23:01 DC 09/20/18 23:03 10 MG (ZEESHAN BANEGAS DO) Allergies Allergies Allergies Coded Allergies Type Severity Reaction Last Updated Verified lisinopril Allergy Intermediate Itching 04/19/16 No (ZEESHAN BANEGAS DO) Physical Exam Physical Exam Constitutional: Well developed, well nourished, no acute distress, non-toxic appearance, obese. [] HENT: Normocephalic, atraumatic, bilateral external ears normal, effusions of bilateral TMs without erythema, cobblestone appearance of posterior pharynx, moist mucous membranes, no oral exudates, nose normal; healing dental extraction site of tooth #32. [] Eyes: conjunctiva normal, no discharge. [] Neck: Normal range of motion, mild tenderness to palpation of right submandibular lymph nodes, no stridor. [] Lungs & Thorax: respirations even and unlabored, no retractions or wheezing Skin: Warm, dry, no erythema, no rash. [] Neurologic: Alert and oriented X 3, normal motor function, normal sensory function, no focal deficits noted. [] Psychologic: Affect normal, judgement normal, mood normal. [] (BETZY CASAS APRN) Current Patient Data Vital Signs Vital Signs Date Time Temp Pulse Resp B/P (MAP) Pulse Ox O2 Delivery O2 Flow Rate FiO2 09/20/18 22:34 97.9 109 18 167/97 (120) 98 Room Air 97.9 (ZEESHAN BANEGAS DO) EKG EKG [] (BETZY CASAS APRN) Radiology/Procedures Radiology/Procedures [] (BETZY CASAS APRN) Course & Med Decision Making Course & Med Decision Making Pertinent Labs and Imaging studies reviewed. (See chart for details) [] (BETZY CASAS APRN) Dragon Disclaimer Dragon Disclaimer This electronic medical record was generated, in whole or in part, using a voice recognition dictation system. (BETZY CASAS APRN) Departure Departure Impression: Primary Impression: Sinusitis Additional Impressions: Pain, dental Acute upper respiratory infection Disposition: 01 HOME, SELF-CARE Condition: STABLE Referrals: NO PCP (PCP) Patient Instructions: Sinusitis, [id number], Upper Respiratory Infection, Adult, [id number] Additional Instructions: Fill prescription(s) and use as directed. Recommend use of a Cool mist humidifier in room at bedtime. Alternate Tylenol or ibuprofen as needed for pain /fever. Increase clear fluids. Avoid airway triggers such as smoke, fragrance, dust, and pollen. May take OTC cough suppressants as needed. Follow-up with your primary care doctor next week, return to the ER if symptoms worsen. Scripts Amoxicillin/Potassium Clav (AUGMENTIN 875-125 TABLET) 1 Each Tablet 1 TAB PO BID, #14 TAB 0 Refills Prov: BETZY CASAS APRN 09/20/18 Attending Signature Attending Signature I have reviewed the PA/[employer]ORER's note and plan of care. I was available for consultation as needed during the patient's visit in the emergency department. I agree with the clinical impression, plan, and disposition. (ZEESHAN BANEGAS DO) Problem Qualifiers Primary Impression: Sinusitis Sinusitis location: unspecified location Chronicity: unspecified Qualified Codes: J32.9 - Chronic sinusitis, unspecified BETZY CASAS APRN Sep 20, 2018 23:03 ZEESHAN BANEGAS DO Sep 21, 2018 01:27
== END 2018-09-20 23:05 | disposition home or self-care (01) ==
LOC: ER 22:26
DX: K08.89 Other specified disorders of teeth and supporting structures (principal); J06.9 Acute upper respiratory infection, unspecified; J32.9 Chronic sinusitis, unspecified; H92.03 Otalgia, bilateral; I10 Essential (primary) hypertension; G89.29 Other chronic pain; Z90.49 Acquired absence of other specified parts of digestive tract; Z88.8 Allergy status to other drugs, medicaments and biological substances
CPT/HCPCS: 99283; J1100

== ENCOUNTER 2019-10-11 16:59 | Emergency (ER) | payer SELFPAY ==
[~2019-10-11] VITALS: Ht 180.3 cm; Wt 150.0 kg
[2019-10-11] MEDS ORDERED: clonazePAM 0.5 MG TABLET PO PRN (18:00)
[2019-10-11] MEDS ORDERED: IV NORMAL SALINE 1000ML BAG 1,000 ML IV ONE (18:00)
[2019-10-11] MEDS ORDERED: ONDANSETRON PF 4 MG/2 ML VIAL. IV ONE (18:00)
[2019-10-11 18:27] LABS: BASO # 0.1 x10^3/uL (0.0-0.2); BASO % 1 % (0-3); EOS # 0.4 x10^3/uL (0.0-0.7); EOS % 3 % (0-3); HEMATOCRIT 39.6 % (36.0-47.0); HEMOGLOBIN 13.1 g/dL (12.0-15.5); LYMPH # 4.2 x10^3/uL (1.0-4.8); LYMPH % 28 % (24-48); MEAN CORPUSCULAR HEMOGLOBIN 28 pg (25-35); MEAN CORPUSCULAR HGB CONC 33 g/dL (31-37); MEAN CORPUSCULAR VOLUME 83 fL (79-100); MONO # 0.7 x10^3/uL (0.0-1.1); MONO % 5 % (0-9); NEUT # 9.3 x10^3/uL (1.8-7.7); NEUT % 64 % (31-73); PLATELET COUNT 356 x10^3/uL (140-400); RED BLOOD COUNT 4.76 x10^6/uL (3.50-5.40); RED CELL DISTRIBUTION WIDTH 13.9 % (11.5-14.5); WHITE BLOOD COUNT 14.7 x10^3/uL (4.0-11.0)
[2019-10-11 18:37] LABS: CALCIUM 9.2 mg/dL (8.5-10.1); CREATININE 0.8 mg/dL (0.6-1.0); GFR 83.7; POTASSIUM 3.8 mmol/L (3.5-5.1)
[2019-10-11 18:42] LABS: ALBUMIN 3.7 g/dL (3.4-5.0); ALBUMIN/GLOBULIN RATIO 0.9 (1.0-1.7); TOTAL BILIRUBIN 0.4 mg/dL (0.2-1.0); TOTAL PROTEIN 7.9 g/dL (6.4-8.2)
[2019-10-11] MEDS ORDERED: KETOROLAC 30 MG/ML VIAL. IV ONE (20:00)
[2019-10-11] MEDS ORDERED: MAGNESIUM OXIDE 400 MG TABLET PO SCH (20:00)
[2019-10-11 20:02] LABS: BILIRUBIN,URINE NEGATIVE (NEG); CLARITY,URINE CLEAR; COLOR,URINE YELLOW; NITRITE,URINE NEGATIVE (NEG); PROTEIN,URINE NEGATIVE (NEG-TRACE); UROBILINOGEN,URINE 0.2 mg/dL (0.2 mg/dL)
[2019-10-11 20:07] LABS: BACTERIA,URINE FEW /HPF (0-FEW); RBC,URINE 0 /HPF (0-2); SQUAMOUS EPITHELIAL CELL,UR MOD /LPF
[2019-10-11 20:20] VITALS: BP 160/85
[2019-10-11] MEDS ORDERED: PHEN-318 PO (20:48)
[2019-10-11] MEDS ORDERED: CEPH-264 PO (20:48)
--- NOTE | 2019-10-11 20:49 | PHYS DOC ---
Past Medical History Past Medical History: Diabetes-Type II, GERD, GI Bleed, High Cholesterol, Hypertension, Other Additional Past Medical Histor: insulin resistance, chronic pain, PLANTAR FASCIITIS, PCOS (BETZY CASAS APRN) Past Surgical History: Cholecystectomy, Other Additional Past Surgical Histo: BOTTOM WISDOM TEETH REMOVED (BETZY CASAS APRN) Smoking Status: Former Smoker Alcohol Use: Rarely Drug Use: None (BETZY CASAS APRN) Attending Signature I have participated in the care of this patient and I have reviewed and agree with all pertinent clinical information above including history, exam, and recommendations. (CHASE MOLINA MD) Adult General Chief Complaint Chief Complaint: GI PROBLEM HPI HPI Patient is a 29 year old female who presents to the emergency department with complaints of bilateral flank pain and lower abdominal cramping and dysuria that began today. She states that she has problems with cramping in her legs all the time but states that her entire body feels crampy at this time. She denies any blood in her urine, nausea, vomiting, diarrhea, fever, fatigue, cough, shortness of breath, or wheezing. She currently denies any pain, she states that the discomfort seemed to increase with urination at home. (BETZY CASAS APRN) Review of Systems Review of Systems All other ROS is negative unless otherwise noted in HPI. (BETZY CASAS APRN) Current Medications Current Medications Current Medications Medications (Trade) Dose Ordered Sig/Tiffanie Start Time Stop Time Status Last Admin Dose Admin Clonazepam (KlonoPIN) 1 mg 1X PRN PRN 10/11/19 18:00 10/11/19 21:09 DC 10/11/19 18:28 1 MG Ketorolac Tromethamine (Toradol 30mg Vial) 30 mg 1X ONCE 10/11/19 20:00 10/11/19 20:05 DC 10/11/19 20:10 30 MG Magnesium Oxide (Magnesium Oxide) 400 mg DAILY 10/11/19 20:00 10/11/19 21:09 DC 10/11/19 20:10 400 MG Ondansetron HCl (Zofran) 4 mg 1X ONCE 10/11/19 18:00 10/11/19 18:05 DC 10/11/19 18:28 4 MG Sodium Chloride 1,000 ml @ 1,000 mls/hr 1X ONCE 10/11/19 18:00 10/11/19 18:59 DC 10/11/19 18:29 1,000 MLS/HR (CHASE MOLINA MD) Allergies Allergies Allergies Coded Allergies Type Severity Reaction Last Updated Verified lisinopril Allergy Intermediate Itching 04/19/16 No (CHASE MOLINA MD) Physical Exam Physical Exam See Above Constitutional: Well developed, well nourished, no acute distress, non-toxic appearance, obese. [] HENT: Normocephalic, atraumatic, bilateral external ears normal, oropharynx moist, no oral exudates, nose normal. [] Eyes: PERRLA, EOMI, conjunctiva normal, no discharge. [] Neck: Normal range of motion, no stridor. [] Cardiovascular:Heart rate regular rhythm, no murmur [] Lungs & Thorax: Bilateral breath sounds clear to auscultation, Respirations even and unlabored, no retractions, no respiratory distress [] Abdomen: Bowel sounds normal, soft, no tenderness, no masses, no pulsatile masses. [] Skin: Warm, dry, no erythema, no rash. [] Back: No CVA tenderness. [] Extremities: No cyanosis, ROM intact Neurologic: Alert and oriented X 3, no focal deficits noted. [] Psychologic: Affect normal, judgement normal, mood normal. [] (BETZY CASAS APRN) Current Patient Data Vital Signs Vital Signs Date Time Temp Pulse Resp B/P (MAP) Pulse Ox O2 Delivery O2 Flow Rate FiO2 10/11/19 20:20 94 14 160/85 (110) 100 Room Air 10/11/19 17:15 97.8 97.8 (CHASE MOLINA MD) Lab Values Laboratory Tests Test 10/11/19 18:17 10/11/19 19:54 White Blood Count 14.7 x10^3/uL (4.0-11.0) H Red Blood Count 4.76 x10^6/uL (3.50-5.40) Hemoglobin 13.1 g/dL (12.0-15.5) Hematocrit 39.6 % (36.0-47.0) Mean Corpuscular Volume 83 fL (79-100) Mean Corpuscular Hemoglobin 28 pg (25-35) Mean Corpuscular Hemoglobin Concent 33 g/dL (31-37) Red Cell Distribution Width 13.9 % (11.5-14.5) Platelet Count 356 x10^3/uL (140-400) Neutrophils (%) (Auto) 64 % (31-73) Lymphocytes (%) (Auto) 28 % (24-48) Monocytes (%) (Auto) 5 % (0-9) Eosinophils (%) (Auto) 3 % (0-3) Basophils (%) (Auto) 1 % (0-3) Neutrophils # (Auto) 9.3 x10^3/uL (1.8-7.7) H Lymphocytes # (Auto) 4.2 x10^3/uL (1.0-4.8) Monocytes # (Auto) 0.7 x10^3/uL (0.0-1.1) Eosinophils # (Auto) 0.4 x10^3/uL (0.0-0.7) Basophils # (Auto) 0.1 x10^3/uL (0.0-0.2) Sodium Level 137 mmol/L (136-145) Potassium Level 3.8 mmol/L (3.5-5.1) Chloride Level 100 mmol/L (98-107) Carbon Dioxide Level 26 mmol/L (21-32) Anion Gap 11 (6-14) Blood Urea Nitrogen 11 mg/dL (7-20) Creatinine 0.8 mg/dL (0.6-1.0) Estimated GFR (Cockcroft-Gault) 83.7 BUN/Creatinine Ratio 14 (6-20) Glucose Level 116 mg/dL (70-99) H Calcium Level 9.2 mg/dL (8.5-10.1) Magnesium Level 1.7 mg/dL (1.8-2.4) L Total Bilirubin 0.4 mg/dL (0.2-1.0) Aspartate Amino Transferase (AST) 80 U/L (15-37) H Alanine Aminotransferase (ALT) 84 U/L (14-59) H Alkaline Phosphatase 108 U/L (46-116) Total Protein 7.9 g/dL (6.4-8.2) Albumin 3.7 g/dL (3.4-5.0) Albumin/Globulin Ratio 0.9 (1.0-1.7) L Urine Collection Type Unknown Urine Color Yellow Urine Clarity Clear Urine pH 5.0 Urine Specific [place] 1.015 Urine Protein Negative mg/dL (NEG-TRACE) Urine Glucose (UA) Negative mg/dL (NEG) Urine Ketones (Stick) Negative mg/dL (NEG) Urine Blood Negative (NEG) Urine Nitrite Negative (NEG) Urine Bilirubin Negative (NEG) Urine Urobilinogen Dipstick 0.2 mg/dL (0.2 mg/dL) Urine Leukocyte Esterase Moderate (NEG) Urine RBC 0 /HPF (0-2) Urine WBC 1-4 /HPF (0-4) Urine Squamous Epithelial Cells Mod /LPF Urine Bacteria Few /HPF (0-FEW) Urine Mucus Mod /LPF Laboratory Tests 10/11/19 18:17 Laboratory Tests 10/11/19 18:17 (CHASE MOLINA MD) EKG EKG [] (BETZY CASAS APRN) Radiology/Procedures Radiology/Procedures [] (BETZY CASAS APRN) Course & Med Decision Making Course & Med Decision Making Pertinent Labs and Imaging studies reviewed. (See chart for details) [] (BETZY CASAS APRN) Dragon Disclaimer Dragon Disclaimer This electronic medical record was generated, in whole or in part, using a voice recognition dictation system. (BETZY CASAS APRN) Departure Departure Impression: Primary Impression: UTI (urinary tract infection) Disposition: 01 HOME, SELF-CARE Condition: STABLE Referrals: NO PCP (PCP) Patient Instructions: Urinary Tract Infection, [id number] Additional Instructions: Fill prescription(s) and use as directed. Avoid bladder irritants such as caffeine, carbonation, and spicy foods. Increase clear fluids. Follow up with your primary care doctor if symptoms persist, return to the ER if symptoms worsen. Scripts Phenazopyridine Hcl (PYRIDIUM) 200 Mg Tablet 1 TAB PO TID for urinary discomfort for 3 Days, #9 TAB 0 Refills Prov: BETZY CASAS APRN 10/11/19 Cephalexin (KEFLEX) 500 Mg Capsule 500 MG PO BID for 7 Days, #14 CAP 0 Refills Prov: BETZY CASAS APRN 10/11/19 Problem Qualifiers Primary Impression: UTI (urinary tract infection) Urinary tract infection type: site unspecified Hematuria presence: without hematuria Qualified Codes: N39.0 - Urinary tract infection, site not specified BETZY CASAS APRN Oct 11, 2019 20:48 CHASE MOLINA MD Oct 12, 2019 01:45
== END 2019-10-11 21:04 | disposition home or self-care (01) ==
LOC: ER 16:59
DX: N39.0 Urinary tract infection, site not specified (principal); R30.0 Dysuria; E11.9 Type 2 diabetes mellitus without complications; K21.9 Gastro-esophageal reflux disease without esophagitis; E78.00 Pure hypercholesterolemia, unspecified; I10 Essential (primary) hypertension; G89.29 Other chronic pain; F17.200 Nicotine dependence, unspecified, uncomplicated; Z90.49 Acquired absence of other specified parts of digestive tract; Z98.890 Other specified postprocedural states; Z79.899 Other long term (current) drug therapy
CPT/HCPCS: 36415; 80053; 81001; 83735; 85025; 87086; 96374; 96375; 99284; J1885; J2405; J7030

== ENCOUNTER 2020-02-03 19:04 | Emergency (ER) | payer SELFPAY ==
[~2020-02-03] VITALS: Ht 180.3 cm; Wt 150.0 kg
[~2020-02-03 19:04] MED LIST changes: +CEPH-264 PO
[2020-02-03] MEDS ORDERED: IV NORMAL SALINE 1000ML BAG 1,000 ML IV SCH (21:17)
--- NOTE | 2020-02-03 21:25 | PHYS DOC ---
Past Medical History Past Medical History: Diabetes-Type II, GERD, GI Bleed, High Cholesterol, Hypertension, Other Additional Past Medical Histor: insulin resistance, chronic pain, PLANTAR FASCIITIS, PCOS Past Surgical History: Cholecystectomy, Other Additional Past Surgical Histo: BOTTOM WISDOM TEETH REMOVED Smoking Status: Former Smoker Alcohol Use: Rarely Drug Use: None General Adult EDM: Chief Complaint: LOWER BACK PAIN OR INJURY HPI: HPI: Patient is a 29 year old female who presents with complaint of right-sided lower back pain that started a couple of days ago. Patient describes pain as sharp and stabbing in nature and states the pain is worsened with certain movements and with deep breathing. Patient states that she is also been having some muscle cramps all over and does admit to a history of low potassium. She states that she is also been feeling dehydrated over the last couple of days 2. She states that she has had some urinary discomfort with urinary frequency. Patient states that she thinks she may have a urinary tract infection. Patient rates pain as moderate. She states that nothing is improving her symptoms. [] Review of Systems: Review of Systems: Constitutional: Denies fever or chills. [] Respiratory: Denies cough or shortness of breath. [] Cardiovascular: Denies chest pain or edema. [] GI: Denies abdominal pain, nausea, vomiting or diarrhea. [] : Complains of dysuria. [] Musculoskeletal: Complains of right lower back pain. [] Integument: Denies rash. [] Neurologic: Denies headache, focal weakness or sensory changes. [] A full 10 point review of systems has been reviewed and is otherwise negative. Heart Score: Risk Factors: Risk Factors: DM, Current or recent (<one month) smoker, HTN, HLP, family history of CAD, obesity. Risk Scores: Score 0 - 3: 2.5% MACE over next 6 weeks - Discharge Home Score 4 - 6: 20.3% MACE over next 6 weeks - Admit for Clinical Observation Score 7 - 10: 72.7% MACE over next 6 weeks - Early Invasive Strategies Allergies: Allergies: Allergies Coded Allergies Type Severity Reaction Last Updated Verified lisinopril Allergy Intermediate Itching 04/19/16 No Physical Exam: PE: Constitutional: Well developed, well nourished, no acute distress, non-toxic appearance. [] HENT: Normocephalic, atraumatic, bilateral external ears normal, oropharynx moist, no oral exudates, nose normal. [] Eyes: PERRLA, EOMI, conjunctiva normal, no discharge. [] Neck: Normal range of motion, no tenderness, supple. [] Cardiovascular: Regular rate and rhythm [] Lungs & Thorax: Bilateral breath sounds clear to auscultation [] Abdomen: Bowel sounds normal, soft, no tenderness. [] Skin: Warm, dry, no erythema, no rash. [] Back: There is tenderness to palpation in the right lower back. [] Extremities: No tenderness, no cyanosis, no clubbing, ROM intact. [] Neurologic: Alert and oriented X 3, no focal deficits noted. [] Current Patient Data: Labs: Laboratory Tests Test 02/03/20 20:40 POC Urine HCG, Qualitative Hcg negative (Negative) Vital Signs: Vital Signs Date Time Temp Pulse Resp B/P (MAP) Pulse Ox O2 Delivery O2 Flow Rate FiO2 02/03/20 19:38 98.4 105 18 168/95 (119) 98 Room Air 98.4 EKG: EKG: [] Radiology/Procedures: Radiology/Procedures: [] Course & Med Decision Making: Course & Med Decision Making Pertinent Labs and Imaging studies reviewed. (See chart for details) [] Dragon Disclaimer: [employer] Disclaimer: This electronic medical record was generated, in whole or in part, using a voice recognition dictation system. Departure Departure Impression: Primary Impression: Low back pain Qualified Codes: M54.5 - Low back pain Additional Impression: UTI (urinary tract infection) Qualified Codes: N39.0 - Urinary tract infection, site not specified Disposition: 01 HOME, SELF-CARE Condition: STABLE Referrals: NO PCP (PCP) Patient Instructions: Back Pain, Adult, Urinary Tract Infection Scripts Orphenadrine Citrate (ORPHENADRINE CITRATE) 100 Mg Tablet.er 1 TAB PO BID PRN for MUSCLE SPASMS, #14 TAB Prov: DENIS MARTÍNEZ Jr. DO 02/03/20 Hydrocodone/Apap 5-325 (NORCO 5-325 TABLET) 1 Each Tablet 1-2 EACH PO PRN Q6HRS PRN for PAIN, #15 as needed for pain Prov: DENIS MARTÍNEZ Jr. DO 02/03/20 Diclofenac Sodium (DICLOFENAC SODIUM) 50 Mg Tablet.dr 1 TAB PO BID PRN for PAIN, #20 TAB Prov: DENIS MARTÍNEZ Jr. DO 02/03/20 Sulfamethoxazole/Trimethoprim (BACTRIM DS TABLET) 1 Each Tablet 1 TAB PO BID for 10 Days, #20 TAB 0 Refills Prov: DENIS MARTÍNEZ Jr. DO 02/03/20 Justicifation of Admission Dx: Justifications for Admission: Justification of Admission Dx: N/A DENIS MARTÍNEZ Jr. DO Feb 03, 2020 21:25
[2020-02-03 21:27] LABS: BILIRUBIN,URINE NEGATIVE (NEG); CLARITY,URINE CLEAR; COLOR,URINE YELLOW; NITRITE,URINE NEGATIVE (NEG); PROTEIN,URINE NEGATIVE (NEG-TRACE); UROBILINOGEN,URINE 0.2 mg/dL (0.2 mg/dL)
[2020-02-03] MEDS ORDERED: ONDANSETRON PF 4 MG/2 ML VIAL. IVP ONE (21:30)
[2020-02-03 21:33] LABS: BACTERIA,URINE FEW /HPF (0-FEW); RBC,URINE 0 /HPF (0-2); SQUAMOUS EPITHELIAL CELL,UR OCC /LPF
[2020-02-03 22:31] LABS: BASO # 0.2 x10^3/uL (0.0-0.2); BASO % 1 % (0-3); EOS # 0.4 x10^3/uL (0.0-0.7); EOS % 3 % (0-3); HEMATOCRIT 39.2 % (36.0-47.0); HEMOGLOBIN 13.4 g/dL (12.0-15.5); LYMPH # 4.3 x10^3/uL (1.0-4.8); LYMPH % 28 % (24-48); MEAN CORPUSCULAR HEMOGLOBIN 28 pg (25-35); MEAN CORPUSCULAR HGB CONC 34 g/dL (31-37); MEAN CORPUSCULAR VOLUME 83 fL (79-100); MONO # 0.6 x10^3/uL (0.0-1.1); MONO % 4 % (0-9); NEUT # 9.5 x10^3/uL (1.8-7.7); NEUT % 63 % (31-73); PLATELET COUNT 361 x10^3/uL (140-400); RED BLOOD COUNT 4.71 x10^6/uL (3.50-5.40); RED CELL DISTRIBUTION WIDTH 13.8 % (11.5-14.5)
[2020-02-03 22:38] LABS: CALCIUM 8.7 mg/dL (8.5-10.1); CREATININE 0.9 mg/dL (0.6-1.0); POTASSIUM 3.6 mmol/L (3.5-5.1)
[2020-02-03 22:44] LABS: ALBUMIN 3.6 g/dL (3.4-5.0); ALBUMIN/GLOBULIN RATIO 0.8 (1.0-1.7); TOTAL BILIRUBIN 0.5 mg/dL (0.2-1.0); TOTAL PROTEIN 8.2 g/dL (6.4-8.2)
[2020-02-03 23:13] VITALS: BP 140/67
[2020-02-03] MEDS ORDERED: SMZ/TMP 800/160MG TABLET. PO ONE (23:15)
[2020-02-03] MEDS ORDERED: HYDR-3164 PO (23:20)
[2020-02-03] MEDS ORDERED: DICL50TA4 PO (23:20)
[2020-02-03] MEDS ORDERED: ORPH100T PO (23:20)
[2020-02-03] MEDS ORDERED: SULF1TAB24 PO (23:20)
== END 2020-02-03 23:30 | disposition home or self-care (01) ==
LOC: ER 19:04
DX: N39.0 Urinary tract infection, site not specified (principal); M54.5 Low back pain; R25.2 Cramp and spasm; E86.0 Dehydration; E11.9 Type 2 diabetes mellitus without complications; K21.9 Gastro-esophageal reflux disease without esophagitis; E78.00 Pure hypercholesterolemia, unspecified; I10 Essential (primary) hypertension; G89.29 Other chronic pain; Z87.891 Personal history of nicotine dependence; Z90.49 Acquired absence of other specified parts of digestive tract; Z88.8 Allergy status to other drugs, medicaments and biological substances
CPT/HCPCS: 36415; 80053; 81001; 81025; 85025; 87086; 96361; 96374; 99285; J2405; J7030

== ENCOUNTER 2021-03-23 19:01 | Emergency (ER) | payer OTHER ==
[~2021-03-23] VITALS: Ht 180.3 cm; Wt 150.0 kg
[~2021-03-23 19:01] MED LIST changes: +DICL50TA4 PO; +ORPH100T PO
[2021-03-24 03:20] VITALS: BP 184/112
--- NOTE | 2021-03-24 03:39 | ED.ADGEN ---
Past Medical History Past Medical History: Diabetes-Type II, GERD, GI Bleed, High Cholesterol, Hypertension, Other Additional Past Medical Histor: insulin resistance, chronic pain, PLANTAR FASCIITIS, PCOS Past Surgical History: Cholecystectomy, Other Additional Past Surgical Histo: BOTTOM WISDOM TEETH REMOVED Smoking Status: Never Smoker Alcohol Use: None Drug Use: None General Adult EDM: Chief Complaint: VAGINAL PROBLEM HPI: HPI: Patient is a 30 year old 30-year-old female coming in due to concern for retained tampon in vagina. Patient states she does not member whether she took her tampon out before putting another 1 and. Patient states she been under increased stress and has just worked a 12-hour shift and was not remembering whether she had taken a tampon out prior. Patient says that when she tried to go to bed last night she tried to insert a tampon but it came back out. She is not able to find strings Review of Systems: Review of Systems: All other systems within normal limits except for as noted in the HPI Allergies: Allergies: Allergies Coded Allergies Type Severity Reaction Last Updated Verified lisinopril Allergy Intermediate Itching 04/19/16 No Physical Exam: PE: Constitutional: Well developed, well nourished, no acute distress, non-toxic appearance. [] HENT: Normocephalic, atraumatic, bilateral external ears normal, nose normal. [] Eyes: PERRLA, conjunctiva normal, no discharge. [] Neck: No rigidity, supple, no stridor. [] Cardiovascular: Regular rate and rhythm, brisk cap refill [] Lungs & Thorax: Non labored symmetric respirations, no tachypnea or respiratory distress [] Abdomen: Soft, nondistended. : Normal external genitalia, no discharge, no foreign body on speculum exam, cervix normal in) Skin: Warm, dry, no erythema, no rash. [] Back: Unremarkable Extremities: No deformities, range of motion grossly intact, no lower extremity edema [] Neurologic: Alert and oriented X 3, no focal deficits noted. [] Psychologic: Affect normal, judgement normal, mood normal. [] EKG: EKG: [] Heart Score: C/O Chest Pain: No Risk Factors: Risk Factors: DM, Current or recent (<one month) smoker, HTN, HLP, family history of CAD, obesity. Risk Scores: Score 0 - 3: 2.5% MACE over next 6 weeks - Discharge Home Score 4 - 6: 20.3% MACE over next 6 weeks - Admit for Clinical Observation Score 7 - 10: 72.7% MACE over next 6 weeks - Early Invasive Strategies Radiology/Procedures: Radiology/Procedures: [] Course & Med Decision Making: Course & Med Decision Making Pertinent Labs and Imaging studies reviewed. (See chart for details) [] Dragon Disclaimer: Dragon Disclaimer: This electronic medical record was generated, in whole or in part, using a voice recognition dictation system. Departure Departure Impression: Primary Impression: No problem, feared complaint unfounded Additional Impression: Feared condition not demonstrated Disposition: 01 HOME / SELF CARE / HOMELESS Condition: STABLE Referrals: UNKNOWN PCP NAME (PCP) Patient Instructions: Vaginal Foreign Body-Brief Problem Qualifiers ILEDFONSO EARLY MD Mar 24, 2021 03:39
== END 2021-03-24 03:46 | disposition home or self-care (01) ==
LOC: ER 19:01
DX: Z71.1 Person with feared health complaint in whom no diagnosis is made (principal); E11.9 Type 2 diabetes mellitus without complications; K21.9 Gastro-esophageal reflux disease without esophagitis; E78.00 Pure hypercholesterolemia, unspecified; I10 Essential (primary) hypertension; Z90.49 Acquired absence of other specified parts of digestive tract; Z88.6 Allergy status to analgesic agent
CPT/HCPCS: 99284